=== PATIENT | female | born 1980 | race Caucasian/White ===

== ENCOUNTER 2018-01-18 12:02 | Inpatient (IN) | payer OTHER ==
[2018-01-18 12:08] VITALS: BMI 32.2
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
[2018-01-18] MEDS ORDERED: ACETAMINOPHEN 325 MG TABLET (FP) PO PRN (15:02)
[2018-01-18] MEDS ORDERED: MAGNESIUM CITRATE 300 ML BOTTLE PO PRN (15:02)
[2018-01-18] MEDS ORDERED: P-EPHED 60MG/TRIPROLIDI 2.5MG TABLET PO PRN (15:02)
[2018-01-18] MEDS ORDERED: IBUPROFEN 400 MG TABLET (FP) PO PRN (15:02)
[2018-01-18] MEDS ORDERED: NICOTINE POLACRILEX 4 MG GUM BC PRN (15:02)
[2018-01-18] MEDS ORDERED: MAG HYDROX/AL HYDROX/SIMETH 30 ML UNIT-DOSE CUP PO PRN (15:02)
[2018-01-18] MEDS ORDERED: guaiFENesin/D-METHORPHAN HB 10 ML UNIT-DOSE CUPS PO PRN (15:02)
[2018-01-18] MEDS ORDERED: MAGNESIUM HYDROX 2400MG/30ML ORAL SUSPENSION 30 ML CUP PO PRN (15:02)
[2018-01-18] MEDS ORDERED: MENTHOL/PHENOL 1 EACH UD MM PRN (15:02)
[2018-01-18] MEDS ORDERED: LOPERAMIDE HCL 2 MG CAPSULE PO PRN (15:02)
[2018-01-18] MEDS ORDERED: ALBUTEROL SO4 8 GM HFA INHALER IH PRN (15:05)
[2018-01-18] MEDS ORDERED: METHADONE HCL 10 MG TABLET (FOR DETOX USE ONLY) PO ONE ×2 (16:00→23:00)
[2018-01-18] MEDS: diazePAM 5 MG TABLET PO PRN ×2 (17:39→22:30)
[2018-01-18] MEDS: NICOTINE 21 MG/24 HOURS TOPICAL PATCH TD SCH (19:06)
[2018-01-18] MEDS ORDERED: MELATONIN 5 MG TABLETS PO PRN (22:00)
[2018-01-18] MEDS: levETIRAcetam 500 MG TABLET (FP) PO SCH (22:30)
[2018-01-18] MEDS: THIAMINE HCL 100 MG TABLET (FP) PO SCH (22:30)
[2018-01-19] MEDS: PHENYTOIN NA EXTENDED 100 MG CAPSULE (FP) PO SCH ×3 (05:56→22:10)
[2018-01-19] MEDS: diazePAM 5 MG TABLET PO PRN ×4 (05:57→23:35)
[2018-01-19] MEDS ORDERED: PRENATAL VITAMINS W/ FOLIC ACID TABLET (FP) PO SCH (10:00)
[2018-01-19] MEDS ORDERED: METHADONE HCL 10 MG TABLET (FOR DETOX USE ONLY) PO ONE (10:00)
[2018-01-19 10:15] LABS: HEMATOCRIT 32.9 % (32.4-45.2); HEMOGLOBIN 11.2 GM/dL (10.7-15.3); MCH 28.9 pg (25.7-33.7); MEAN CELL VOLUME 84.8 fl (80-96); MEAN PLT VOLUME 8.5 fl (7.5-11.1); PLATELET COUNT 323 K/MM3 (134-434); RBC 3.88 M/mm3 (3.60-5.2); RDW 17.4 % (11.6-15.6); WHITE BLOOD COUNT 6.3 K/mm3 (4.0-10.0)
[2018-01-19 10:39] LABS: CHLORIDE 107 mmol/L (98-107); POTASSIUM 3.5 mmol/L (3.5-5.1); SODIUM 141 mmol/L (136-145)
[2018-01-19 10:46] LABS: ALBUMIN 3.3 g/dl (3.4-5.0); ALK PHOS 180 U/L (45-117); ANION GAP 7 (8-16); BILIRUBIN,TOTAL 0.2 mg/dL (0.2-1.0); BLOOD UREA NITROGEN 7 mg/dL (7-18); CALCIUM 8.6 mg/dL (8.5-10.1); CO2 27 mmol/L (21-32); CREATININE 0.8 mg/dL (0.55-1.02); GLUCOSE,RANDOM 113 mg/dL (74-106); SGOT/AST 15 U/L (15-37); SGPT/ALT 19 U/L (12-78); TOT PROT 7.1 g/dl (6.4-8.2)
[2018-01-19] MEDS: levETIRAcetam 500 MG TABLET (FP) PO SCH ×2 (10:47→22:09)
[2018-01-19] MEDS: NICOTINE 21 MG/24 HOURS TOPICAL PATCH TD SCH (10:49)
--- NOTE | 2018-01-19 13:40 | PN ---
BHS COWS - Scale Resting Pulse: 1= [place] 81-100 Sweatin= Chills/Flushing Restless Observation: 1= Difficult to Sit Still Pupil Size: 1= Pupils >than Normal Bone or Joint Aches: 2= Severe Diffuse Aches Runny Nose/ Eye Tearin= Nasal Congestion GI Upset > 30mins: 2= Nausea/Diarrhea Tremor Observation of Outstretched Hands: 2= Slight Tremor Visible Yawning Observation: 1= 1-2x During Session Anxiety or Irritability: 1=Feels Anxious/Irritable Goose Flesh Skin: 0=Smooth Skin COWS Score: 13 BHS Progress Note (SOAP) Subjective: Interrupted sleep, irritability and muscle aches Objective: 01/19/18 13:38 Vital Signs - 8 hr 01/19/18 01/19/18 06:00 10:35 Temperature 98.1 F 97.7 F Pulse Rate 84 77 Respiratory 18 18 Rate Blood Pressure 105/68 108/53 Laboratory Last Values WBC 6.3 K/mm3 (4.0-10.0) 01/19/18 05:30 RBC 3.88 M/mm3 (3.60-5.2) 01/19/18 05:30 Hgb 11.2 GM/dL (10.7-15.3) 01/19/18 05:30 Hct 32.9 % (32.4-45.2) 01/19/18 05:30 MCV 84.8 fl (80-96) 01/19/18 05:30 MCH 28.9 pg (25.7-33.7) 01/19/18 05:30 MCHC 34.0 g/dl (32.0-36.0) 01/19/18 05:30 RDW 17.4 % (11.6-15.6) H 01/19/18 05:30 Plt Count 323 K/MM3 (134-434) 01/19/18 05:30 MPV 8.5 fl (7.5-11.1) 01/19/18 05:30 Sodium 141 mmol/L (136-145) 01/19/18 05:30 Potassium 3.5 mmol/L (3.5-5.1) 01/19/18 05:30 Chloride 107 mmol/L (98-107) 01/19/18 05:30 Carbon Dioxide 27 mmol/L (21-32) 01/19/18 05:30 Anion Gap 7 (8-16) L 01/19/18 05:30 BUN 7 mg/dL (7-18) 01/19/18 05:30 Creatinine 0.8 mg/dL (0.55-1.02) 01/19/18 05:30 Creat Clearance w eGFR > 60 (>60) 01/19/18 05:30 Random Glucose 113 mg/dL (74-106) H 01/19/18 05:30 Calcium 8.6 mg/dL (8.5-10.1) 01/19/18 05:30 Total Bilirubin 0.2 mg/dL (0.2-1.0) 01/19/18 05:30 AST 15 U/L (15-37) 01/19/18 05:30 ALT 19 U/L (12-78) 01/19/18 05:30 Alkaline Phosphatase 180 U/L (45-117) H 01/19/18 05:30 Total Protein 7.1 g/dl (6.4-8.2) 01/19/18 05:30 Albumin 3.3 g/dl (3.4-5.0) L 01/19/18 05:30 Phenytoin 3.8 ug/ml (10.0-20.0) L D 01/19/18 05:30 RPR Titer Nonreactive (NONREACTIVE) 01/19/18 05:30 Labs noted Assessment: 01/19/18 13:39 Withdrawal sx Subtherapeutic dilantin level Plan: Continue detox Continue to monitor, patient may not have been compliant at home
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
[2018-01-19] MEDS ORDERED: ZOLPIDEM TARTRATE 5 MG TABLET PO PRN (22:00)
[2018-01-19] MEDS: THIAMINE HCL 100 MG TABLET (FP) PO SCH (22:09)
[2018-01-19 23:01] VITALS: BP 127/67; PULSE 80; TEMP 98.1
--- NOTE | 2018-01-20 06:05 | PN ---
S Progress Note Note: client signed out ama despite all efforts to redirect. client is a/o x3 nad. vss
--- NOTE | 2018-01-20 06:06 | DS ---
[facility] Detox Discharge Summary Admission Date: 01/18/18 Discharge Date: 01/20/18 - History Present History: Cocaine Dependence, Opioid Dependence Pertinent Past History: nicotine dep - Physical Exam Results Vital Signs: Vital Signs Temperature 98.1 F 01/19/18 23:00 Pulse Rate 80 01/19/18 23:00 Respiratory Rate 16 01/20/18 03:30 Blood Pressure 127/67 01/19/18 23:00 O2 Sat by Pulse Oximetry (%) Pertinent Admission Physical Exam Findings: withdrawal sx's Laboratory Tests 01/19/18 01/19/18 01/19/18 05:30 05:30 05:30 WBC 6.3 RBC 3.88 Hgb 11.2 Hct 32.9 MCV 84.8 MCH 28.9 MCHC 34.0 RDW 17.4 H Plt Count 323 MPV 8.5 Sodium 141 Potassium 3.5 Chloride 107 Carbon Dioxide 27 Anion Gap 7 L BUN 7 Creatinine 0.8 Creat Clearance w eGFR > 60 Random Glucose 113 H Calcium 8.6 Total Bilirubin 0.2 AST 15 ALT 19 Alkaline Phosphatase 180 H Total Protein 7.1 Albumin 3.3 L Phenytoin RPR Titer Nonreactive 01/19/18 05:30 WBC RBC Hgb Hct MCV MCH MCHC RDW Plt Count MPV Sodium Potassium Chloride Carbon Dioxide Anion Gap BUN Creatinine Creat Clearance w eGFR Random Glucose Calcium Total Bilirubin AST ALT Alkaline Phosphatase Total Protein Albumin Phenytoin 3.8 L D RPR Titer - Treatment Hospital Course: Discharged Condition Good - Medication Discharge Medications: Ambulatory Orders Albuterol Sulfate Inhaler - [Ventolin HFA Inhaler -] 2 inh PO Q4H PRN #1 inhaler 09/28/17 Phenytoin Na Extended [Dilantin -] 100 mg PO TID #90 capsule 09/28/17 levETIRAcetam [Keppra -] 750 mg PO BID #60 tablet 09/28/17 Amitriptyline HCl [Elavil -] 25 mg PO HS 01/18/18 Sertraline HCl [Zoloft] 100 mg PO DAILY 01/18/18 Ziprasidone [Geodon] 60 mg PO BID 01/18/18 Zolpidem Tartrate [Ambien] 10 mg PO HS 01/18/18 - Diagnosis (1) Cocaine dependence Status: Chronic (2) Nicotine dependence Status: Chronic Qualifiers: Nicotine product type: cigarettes Substance use status: uncomplicated Qualified Code(s): F17.210 - Nicotine dependence, cigarettes, uncomplicated (3) Methadone maintenance therapy patient Status: Chronic (4) PTSD (post-traumatic stress disorder) Status: Chronic (5) Schizoaffective disorder Status: Chronic Qualifiers: Schizoaffective disorder type: unspecified Qualified Code(s): F25.9 - Schizoaffective disorder, unspecified (6) Uncomplicated opioid dependence Status: Chronic (7) History of schizophrenia Status: Suspected (8) Substance induced mood disorder Status: Suspected - AMA Did Patient Leave Against Medical Advice: Yes
[2018-01-20] MEDS ORDERED: METHADONE HCL 5 MG TABLET (FOR DETOX USE ONLY) PO ONE (10:00)
[2018-01-20] MEDS ORDERED: SERTRALINE HCL 50 MG TABLET (FP) PO SCH (10:00)
[2018-01-21] MEDS ORDERED: METHADONE HCL 5 MG TABLET (FOR DETOX USE ONLY) PO ONE (10:00)
--- NOTE | 2018-01-21 11:07 | EKG ---
Test Reason : Blood Pressure : / mmHG Vent. Rate : 088 BPM Atrial Rate : 088 BPM P-R Int : 144 ms QRS Dur : 080 ms QT Int : 400 ms P-R-T Axes : 056 040 051 degrees QTc Int : 484 ms NORMAL SINUS RHYTHM CANNOT RULE OUT ANTERIOR INFARCT , AGE UNDETERMINED ABNORMAL ECG WHEN COMPARED WITH ECG OF 18-JAN-2018 17:00, PREMATURE ATRIAL COMPLEXES ARE NO LONGER PRESENT Confirmed by DEJON KAYE, CEZAR ([id number]) on 01/21/2018 11:06:55 AM Referred By: Confirmed By:CEZAR ASHFORD MD
--- NOTE | 2018-01-21 11:10 | EKG ---
Test Reason : Blood Pressure : / mmHG Vent. Rate : 067 BPM Atrial Rate : 067 BPM P-R Int : 150 ms QRS Dur : 078 ms QT Int : 440 ms P-R-T Axes : 064 057 065 degrees QTc Int : 464 ms SINUS RHYTHM WITH PREMATURE ATRIAL COMPLEXES OTHERWISE NORMAL ECG WHEN COMPARED WITH ECG OF 20-SEP-2017 16:15, PREMATURE ATRIAL COMPLEXES ARE NOW PRESENT Confirmed by DEJON KAYE, CEZAR ([id number]) on 01/21/2018 11:10:02 AM Referred By: Confirmed By:CEZAR ASHFORD MD
[2018-01-22] MEDS ORDERED: METHADONE HCL 10 MG TABLET (FOR DETOX USE ONLY) PO ONE (10:00)
[2018-01-23] MEDS ORDERED: METHADONE HCL 5 MG TABLET (FOR DETOX USE ONLY) PO ONE (06:00)
== END 2018-01-20 05:15 | disposition left against medical advice (07) | DRG 770 ==
LOC: YASAS 12:02 → Y6N 15:49
PROVIDERS: ADMIT Surgery; ATTEND Surgery
PROC: HZ2ZZZZ Detoxification Services for Substance Abuse Treatment (ICD-10-PCS; principal; 2018-01-18)
DX: F11.23 Opioid dependence with withdrawal (principal); F14.20 Cocaine dependence, uncomplicated; F12.20 Cannabis dependence, uncomplicated; F17.210 Nicotine dependence, cigarettes, uncomplicated; F43.10 Post-traumatic stress disorder, unspecified; F25.9 Schizoaffective disorder, unspecified; F19.24 Other psychoactive substance dependence with psychoactive substance-induced mood disorder; G40.909 Epilepsy, unspecified, not intractable, without status epilepticus; G47.00 Insomnia, unspecified; F64.9 Gender identity disorder, unspecified; J45.909 Unspecified asthma, uncomplicated; Z88.0 Allergy status to penicillin; Z91.013 Allergy to seafood; Z91.010 Allergy to peanuts; Z85.841 Personal history of malignant neoplasm of brain
CPT/HCPCS: 36415; 80053; 80185; 85027; 86593; 93005; 93010

== ENCOUNTER 2018-03-19 11:57 | Inpatient (IN) | payer OTHER ==
[2018-03-19 12:40] VITALS: BMI 32.2
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
[2018-03-19] MEDS ORDERED: MAGNESIUM HYDROX 2400MG/30ML ORAL SUSPENSION 30 ML CUP PO PRN (14:41)
[2018-03-19] MEDS ORDERED: METHADONE HCL 10 MG TABLET (FOR DETOX USE ONLY) PO ONE ×3 (14:41→23:00)
[2018-03-19] MEDS ORDERED: MAGNESIUM CITRATE 300 ML BOTTLE PO PRN (14:41)
[2018-03-19] MEDS ORDERED: LOPERAMIDE HCL 2 MG CAPSULE PO PRN (14:41)
[2018-03-19] MEDS ORDERED: MAG HYDROX/AL HYDROX/SIMETH 30 ML UNIT-DOSE CUP PO PRN (14:41)
[2018-03-19] MEDS ORDERED: MENTHOL/PHENOL 1 EACH UD MM PRN (14:41)
[2018-03-19] MEDS ORDERED: IBUPROFEN 400 MG TABLET (FP) PO PRN (14:41)
[2018-03-19] MEDS ORDERED: ACETAMINOPHEN 325 MG TABLET (FP) PO PRN (14:41)
[2018-03-19] MEDS ORDERED: P-EPHED 60MG/TRIPROLIDI 2.5MG TABLET PO PRN (14:41)
[2018-03-19] MEDS: chlordiazePOXIDE HCL 25 MG CAPSULE PO PRN (19:09)
[2018-03-19] MEDS ORDERED: MELATONIN 5 MG TABLETS PO PRN (22:00)
[2018-03-19] MEDS: levETIRAcetam 250 MG TABLET (FP) PO SCH (22:32)
[2018-03-19] MEDS: PHENYTOIN NA EXTENDED 100 MG CAPSULE (FP) PO SCH (22:32)
[2018-03-19] MEDS: THIAMINE HCL 100 MG TABLET (FP) PO SCH (22:32)
[2018-03-19] MEDS: chlordiazePOXIDE HCL 25 MG CAPSULE PO SCH (22:32)
[2018-03-19] MEDS: guaiFENesin/D-METHORPHAN HB 10 ML UNIT-DOSE CUPS PO PRN (22:34)
[2018-03-20 02:24] LABS: URINE APPEARANCE SLCLOUDY; URINE BILIRUBIN NEGATIVE (<2.0 mg/dL); URINE COLOR YELLOW; URINE GLUCOSE (UA) NEGATIVE (NEGATIVE); URINE KETONE NEGATIVE (NEGATIVE); URINE LEUK ESTERASE NEGATIVE (NEGATIVE); URINE NITRITE NEGATIVE (NEGATIVE); URINE PROTEIN NEGATIVE (NEGATIVE); URINE UROBILINOGEN NEGATIVE mg/dL (0.2-1.0)
[2018-03-20 02:55] LABS: CALCIUM OXALATE CRYSTALS FEW /hpf (NONE SEEN); EPI CELLS FEW /HPF (FEW); URINE BACTERIA RARE /hpf (NONE SEEN); URINE MUCUS RARE
[2018-03-20] MEDS: chlordiazePOXIDE HCL 25 MG CAPSULE PO SCH ×4 (06:31→22:40)
[2018-03-20] MEDS: PHENYTOIN NA EXTENDED 100 MG CAPSULE (FP) PO SCH ×3 (06:31→22:40)
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
[2018-03-20] MEDS ORDERED: METHADONE HCL 10 MG TABLET (FOR DETOX USE ONLY) PO SCH (10:00)
[2018-03-20] MEDS: levETIRAcetam 250 MG TABLET (FP) PO SCH ×2 (10:40→22:40)
[2018-03-20] MEDS: NICOTINE 7 MG/24 HOURS TOPICAL PATCH TD SCH (10:41)
[2018-03-20] MEDS: PRENATAL VITAMINS W/ FOLIC ACID TABLET (FP) PO SCH (10:41)
--- NOTE | 2018-03-20 11:44 | EKG ---
Test Reason : Blood Pressure : / mmHG Vent. Rate : 078 BPM Atrial Rate : 078 BPM P-R Int : 136 ms QRS Dur : 078 ms QT Int : 392 ms P-R-T Axes : 045 049 053 degrees QTc Int : 446 ms SINUS RHYTHM WITH PREMATURE ATRIAL COMPLEXES OTHERWISE NORMAL ECG WHEN COMPARED WITH ECG OF 19-JAN-2018 15:44, PREMATURE ATRIAL COMPLEXES ARE NOW PRESENT Confirmed by CAROL KAYE, STEFF ([id number]) on 03/20/2018 11:44:07 AM Referred By: Confirmed By:STEFF MEDINA MD
[2018-03-20] MEDS: ALBUTEROL SO4 8 GM HFA INHALER IH PRN ×2 (13:18→22:41)
[2018-03-20] MEDS: guaiFENesin/D-METHORPHAN HB 10 ML UNIT-DOSE CUPS PO PRN ×2 (13:18→22:41)
--- NOTE | 2018-03-20 14:01 | PN ---
[facility] CIWA - CIWA Score Nausea/Vomitin-Mild Nausea/No Vomiting Muscle Tremors: 4-Moderate,w/Arms Extend Anxiety: 4-Mod. Anxious/Guarded Agitation: 3 Paroxysmal Sweats: 1-Minimal Palms Moist Orientation: 0-Oriented Tacttile Disturbances: 0-None Auditory Disturbances: 0-None Visual Disturbances: 0-None Headache: 0-None Present CIWA-Ar Total Score: 13 BHS COWS - Scale Resting Pulse: 0= [place] 80 or Below Sweatin= Chills/Flushing Restless Observation: 1= Difficult to Sit Still Pupil Size: 0= Normal to Room Light Bone or Joint Aches: 1= Mild Discomfort Runny Nose/ Eye Tearin= None GI Upset > 30mins: 2= Nausea/Diarrhea Tremor Observation of Outstretched Hands: 2= Slight Tremor Visible Yawning Observation: 1= 1-2x During Session Anxiety or Irritability: 1=Feels Anxious/Irritable Goose Flesh Skin: 3=Pil[place] COWS Score: 12 S Progress Note (SOAP) Subjective: body ache tremor sweat joints pain anxiety Objective: 03/20/18 14:00 Vital Signs Temperature 98.1 F 03/20/18 13:12 Pulse Rate 101 H 03/20/18 13:12 Respiratory Rate 16 03/20/18 13:12 Blood Pressure 122/80 03/20/18 13:12 O2 Sat by Pulse Oximetry (%) Laboratory Last Values Urine Color Yellow 03/19/18 23:30 Urine Appearance Slcloudy 03/19/18 23:30 Urine pH 5.0 (5.0-8.0) 03/19/18 23:30 Ur Specific [place] 1.023 (1.001-1.035) 03/19/18 23:30 Urine Protein Negative (NEGATIVE) 03/19/18 23:30 Urine Glucose (UA) Negative (NEGATIVE) 03/19/18 23:30 Urine Ketones Negative (NEGATIVE) 03/19/18 23:30 Urine Blood 2+ (NEGATIVE) H 03/19/18 23:30 Urine Nitrite Negative (NEGATIVE) 03/19/18 23:30 Urine Bilirubin Negative (<2.0 mg/dL) 03/19/18 23:30 Urine Urobilinogen Negative mg/dL (0.2-1.0) 03/19/18 23:30 Ur Leukocyte Esterase Negative (NEGATIVE) 03/19/18 23:30 Urine WBC (Auto) 3 /hpf (3-5) 03/19/18 23:30 Urine RBC (Auto) 65 /hpf (0-3) 03/19/18 23:30 Ur Epithelial Cells Few /HPF (FEW) 03/19/18 23:30 Calcium Oxalate Crystal Few /hpf (NONE SEEN) 03/19/18 23:30 Urine Bacteria Rare /hpf (NONE SEEN) 03/19/18 23:30 Urine Mucus Rare 03/19/18 23:30 lab noted Assessment: 03/20/18 14:01 withdrawal sx Plan: continue detox
[2018-03-20] MEDS ORDERED: QUEtiapine FUMARATE 50 MG TABLET PO SCH (22:00)
[2018-03-20] MEDS ORDERED: AMITRIPTYLINE HCL 25 MG TABLET (FP) PO SCH (22:00)
[2018-03-20] MEDS: THIAMINE HCL 100 MG TABLET (FP) PO SCH (22:40)
[2018-03-21] MEDS: chlordiazePOXIDE HCL 25 MG CAPSULE PO PRN (00:42)
[2018-03-21] MEDS: chlordiazePOXIDE HCL 25 MG CAPSULE PO SCH ×2 (06:51→10:25)
[2018-03-21] MEDS: PHENYTOIN NA EXTENDED 100 MG CAPSULE (FP) PO SCH (07:00)
[2018-03-21 09:18] VITALS: BP 100/54; PULSE 82; TEMP 97.3
[2018-03-21] MEDS ORDERED: ONDANSETRON *ODT* 4 MG TABLET SL PRN (09:32)
[2018-03-21] MEDS ORDERED: METHADONE HCL 5 MG TABLET (FOR DETOX USE ONLY) PO SCH (10:00)
[2018-03-21 10:11] LABS: HEMOGLOBIN 11.6 GM/dL (10.7-15.3); MCH 27.5 pg (25.7-33.7); MCHC 32.3 g/dl (32.0-36.0); MEAN PLT VOLUME 7.6 fl (7.5-11.1); PLATELET COUNT 349 K/MM3 (134-434); RBC 4.23 M/mm3 (3.60-5.2); RDW 16.1 % (11.6-15.6); WHITE BLOOD COUNT 6.1 K/mm3 (4.0-10.0)
[2018-03-21] MEDS: levETIRAcetam 250 MG TABLET (FP) PO SCH (10:24)
[2018-03-21] MEDS: NICOTINE 7 MG/24 HOURS TOPICAL PATCH TD SCH (10:27)
[2018-03-21] MEDS: PRENATAL VITAMINS W/ FOLIC ACID TABLET (FP) PO SCH (10:27)
[2018-03-21] MEDS: guaiFENesin/D-METHORPHAN HB 10 ML UNIT-DOSE CUPS PO PRN (10:28)
[2018-03-21 10:31] LABS: ALK PHOS 194 U/L (45-117); ANION GAP 12 MMOL/L (8-16); BILIRUBIN,TOTAL 0.2 mg/dL (0.2-1); BLOOD UREA NITROGEN 8 mg/dL (7-18); CALCIUM 9.3 mg/dL (8.5-10.1); CHLORIDE 110 mmol/L (98-107); CO2 21 mmol/L (21-32); CREATININE 0.5 mg/dL (0.55-1.3); GLUCOSE,RANDOM 82 mg/dL (74-106); POTASSIUM 4.6 mmol/L (3.5-5.1); SGOT/AST 14 U/L (15-37); SGPT/ALT 25 U/L (13-61); SODIUM 142 mmol/L (136-145); TOT PROT 7.1 g/dl (6.4-8.2)
--- NOTE | 2018-03-21 10:58 | PN ---
S CIWA - CIWA Score Nausea/Vomitin Muscle Tremors: 2 Anxiety: 3 Agitation: 3 Paroxysmal Sweats: 2 Orientation: 0-Oriented Tacttile Disturbances: 0-None Auditory Disturbances: 0-None Visual Disturbances: 0-None Headache: 0-None Present CIWA-Ar Total Score: 12 BHS COWS - Scale Resting Pulse: 0= [place] 80 or Below Sweatin= Chills/Flushing Restless Observation: 1= Difficult to Sit Still Pupil Size: 1= Pupils >than Normal Bone or Joint Aches: 1= Mild Discomfort Runny Nose/ Eye Tearin= Nasal Congestion GI Upset > 30mins: 2= Nausea/Diarrhea Tremor Observation of Outstretched Hands: 1= Tremor [place], Not Seen Yawning Observation: 2= >3x During Session Anxiety or Irritability: 2=Irritable/Anxious Goose Flesh Skin: 0=Smooth Skin COWS Score: 12 [facility] Progress Note (SOAP) Subjective: nausea, vomiting, diarrhea, interrupted sleep, anxious Objective: 03/21/18 10:58 Vital Signs Temperature 97.3 F L 03/21/18 09:18 Pulse Rate 82 03/21/18 09:18 Respiratory Rate 16 03/21/18 09:18 Blood Pressure 100/54 L 03/21/18 09:18 O2 Sat by Pulse Oximetry (%) Laboratory Last Values WBC 6.1 K/mm3 (4.0-10.0) 03/21/18 07:00 RBC 4.23 M/mm3 (3.60-5.2) 03/21/18 07:00 Hgb 11.6 GM/dL (10.7-15.3) 03/21/18 07:00 Hct 36.0 % (32.4-45.2) 03/21/18 07:00 MCV 85.0 fl (80-96) 03/21/18 07:00 MCH 27.5 pg (25.7-33.7) 03/21/18 07:00 MCHC 32.3 g/dl (32.0-36.0) 03/21/18 07:00 RDW 16.1 % (11.6-15.6) H 03/21/18 07:00 Plt Count 349 K/MM3 (134-434) 03/21/18 07:00 MPV 7.6 fl (7.5-11.1) D 03/21/18 07:00 Sodium 142 mmol/L (136-145) 03/21/18 07:00 Potassium 4.6 mmol/L (3.5-5.1) 03/21/18 07:00 Chloride 110 mmol/L (98-107) H 03/21/18 07:00 Carbon Dioxide 21 mmol/L (21-32) 03/21/18 07:00 Anion Gap 12 MMOL/L (8-16) 03/21/18 07:00 BUN 8 mg/dL (7-18) 03/21/18 07:00 Creatinine 0.5 mg/dL (0.55-1.3) L 03/21/18 07:00 Creat Clearance w eGFR > 60 (>60) 03/21/18 07:00 Random Glucose 82 mg/dL (74-106) 03/21/18 07:00 Calcium 9.3 mg/dL (8.5-10.1) 03/21/18 07:00 Total Bilirubin 0.2 mg/dL (0.2-1) 03/21/18 07:00 AST 14 U/L (15-37) L 03/21/18 07:00 ALT 25 U/L (13-61) 03/21/18 07:00 Alkaline Phosphatase 194 U/L (45-117) H 03/21/18 07:00 Total Protein 7.1 g/dl (6.4-8.2) 03/21/18 07:00 Albumin 3.0 g/dl (3.4-5.0) L 03/21/18 07:00 Urine Color Yellow 03/19/18 23:30 Urine Appearance Slcloudy 03/19/18 23:30 Urine pH 5.0 (5.0-8.0) 03/19/18 23:30 Ur Specific [place] 1.023 (1.001-1.035) 03/19/18 23:30 Urine Protein Negative (NEGATIVE) 03/19/18 23:30 Urine Glucose (UA) Negative (NEGATIVE) 03/19/18 23:30 Urine Ketones Negative (NEGATIVE) 03/19/18 23:30 Urine Blood 2+ (NEGATIVE) H 03/19/18 23:30 Urine Nitrite Negative (NEGATIVE) 03/19/18 23:30 Urine Bilirubin Negative (<2.0 mg/dL) 03/19/18 23:30 Urine Urobilinogen Negative mg/dL (0.2-1.0) 03/19/18 23:30 Ur Leukocyte Esterase Negative (NEGATIVE) 03/19/18 23:30 Urine WBC (Auto) 3 /hpf (3-5) 03/19/18 23:30 Urine RBC (Auto) 65 /hpf (0-3) 03/19/18 23:30 Ur Epithelial Cells Few /HPF (FEW) 03/19/18 23:30 Calcium Oxalate Crystal Few /hpf (NONE SEEN) 03/19/18 23:30 Urine Bacteria Rare /hpf (NONE SEEN) 03/19/18 23:30 Urine Mucus Rare 03/19/18 23:30 RPR Titer Nonreactive (NONREACTIVE) 03/21/18 07:00 Assessment: 03/21/18 13:50 aox3 no distress, anxious no adventitious breath sounds abdomen non-tender , non distended full ROM, ambulating in the unit Plan: increase fluids zofran prn continue detox
[2018-03-21] MEDS ORDERED: LIDOCAINE 5% TOPICAL PATCH TP SCH (11:00)
[2018-03-21] MEDS ORDERED: FLU VACCINE QUAD 60 MCG/0.5 ML (MDV 18-19) IM ONE (12:00)
--- NOTE | 2018-03-21 13:02 | DS ---
[facility] Detox Discharge Summary Admission Date: 03/19/18 Discharge Date: 03/21/18 - History Present History: Alcohol Dependence, Opioid Dependence Pertinent Past History: Vital Signs Temperature 97.3 F L 03/21/18 09:18 Pulse Rate 82 03/21/18 09:18 Respiratory Rate 16 03/21/18 09:18 Blood Pressure 100/54 L 03/21/18 09:18 O2 Sat by Pulse Oximetry (%) Laboratory Last Values WBC 6.1 K/mm3 (4.0-10.0) 03/21/18 07:00 RBC 4.23 M/mm3 (3.60-5.2) 03/21/18 07:00 Hgb 11.6 GM/dL (10.7-15.3) 03/21/18 07:00 Hct 36.0 % (32.4-45.2) 03/21/18 07:00 MCV 85.0 fl (80-96) 03/21/18 07:00 MCH 27.5 pg (25.7-33.7) 03/21/18 07:00 MCHC 32.3 g/dl (32.0-36.0) 03/21/18 07:00 RDW 16.1 % (11.6-15.6) H 03/21/18 07:00 Plt Count 349 K/MM3 (134-434) 03/21/18 07:00 MPV 7.6 fl (7.5-11.1) D 03/21/18 07:00 Sodium 142 mmol/L (136-145) 03/21/18 07:00 Potassium 4.6 mmol/L (3.5-5.1) 03/21/18 07:00 Chloride 110 mmol/L (98-107) H 03/21/18 07:00 Carbon Dioxide 21 mmol/L (21-32) 03/21/18 07:00 Anion Gap 12 MMOL/L (8-16) 03/21/18 07:00 BUN 8 mg/dL (7-18) 03/21/18 07:00 Creatinine 0.5 mg/dL (0.55-1.3) L 03/21/18 07:00 Creat Clearance w eGFR > 60 (>60) 03/21/18 07:00 Random Glucose 82 mg/dL (74-106) 03/21/18 07:00 Calcium 9.3 mg/dL (8.5-10.1) 03/21/18 07:00 Total Bilirubin 0.2 mg/dL (0.2-1) 03/21/18 07:00 AST 14 U/L (15-37) L 03/21/18 07:00 ALT 25 U/L (13-61) 03/21/18 07:00 Alkaline Phosphatase 194 U/L (45-117) H 03/21/18 07:00 Total Protein 7.1 g/dl (6.4-8.2) 03/21/18 07:00 Albumin 3.0 g/dl (3.4-5.0) L 03/21/18 07:00 Urine Color Yellow 03/19/18 23:30 Urine Appearance Slcloudy 03/19/18 23:30 Urine pH 5.0 (5.0-8.0) 03/19/18 23:30 Ur Specific [place] 1.023 (1.001-1.035) 03/19/18 23:30 Urine Protein Negative (NEGATIVE) 03/19/18 23:30 Urine Glucose (UA) Negative (NEGATIVE) 03/19/18 23:30 Urine Ketones Negative (NEGATIVE) 03/19/18 23:30 Urine Blood 2+ (NEGATIVE) H 03/19/18 23:30 Urine Nitrite Negative (NEGATIVE) 03/19/18 23:30 Urine Bilirubin Negative (<2.0 mg/dL) 03/19/18 23:30 Urine Urobilinogen Negative mg/dL (0.2-1.0) 03/19/18 23:30 Ur Leukocyte Esterase Negative (NEGATIVE) 03/19/18 23:30 Urine WBC (Auto) 3 /hpf (3-5) 03/19/18 23:30 Urine RBC (Auto) 65 /hpf (0-3) 03/19/18 23:30 Ur Epithelial Cells Few /HPF (FEW) 03/19/18 23:30 Calcium Oxalate Crystal Few /hpf (NONE SEEN) 03/19/18 23:30 Urine Bacteria Rare /hpf (NONE SEEN) 03/19/18 23:30 Urine Mucus Rare 03/19/18 23:30 RPR Titer Nonreactive (NONREACTIVE) 03/21/18 07:00 - Physical Exam Results Vital Signs: Vital Signs Temperature 97.3 F L 03/21/18 09:18 Pulse Rate 82 03/21/18 09:18 Respiratory Rate 16 03/21/18 09:18 Blood Pressure 100/54 L 03/21/18 09:18 O2 Sat by Pulse Oximetry (%) - Medication Discharge Medications: Ambulatory Orders Albuterol Sulfate Inhaler - [Ventolin HFA Inhaler -] 2 inh PO Q4H PRN #1 inhaler 09/28/17 Phenytoin Na Extended [Dilantin -] 100 mg PO TID #90 capsule 09/28/17 levETIRAcetam [Keppra -] 750 mg PO BID #60 tablet 09/28/17 Amitriptyline HCl [Elavil -] 25 mg PO HS 01/18/18 Sertraline HCl [Zoloft] 100 mg PO DAILY 01/18/18 Ziprasidone [Geodon] 60 mg PO BID 01/18/18 Zolpidem Tartrate [Ambien] 10 mg PO HS 01/18/18 - Diagnosis (1) Cannabis dependence, uncomplicated Current Visit: Yes Status: Chronic (2) Opioid dependence with withdrawal Current Visit: Yes Status: Acute (3) Alcohol dependence with withdrawal Current Visit: Yes Status: Acute Qualifiers: Complication of substance-induced condition: uncomplicated Qualified Code(s ): F10.230 - Alcohol dependence with withdrawal, uncomplicated (4) Nausea & vomiting Current Visit: Yes Status: Acute (5) Anemia Current Visit: Yes Status: Chronic (6) Asthma Current Visit: Yes Status: Chronic (7) Nicotine dependence Current Visit: Yes Status: Chronic Qualifiers: Nicotine product type: cigarettes Substance use status: uncomplicated Qualified Code(s): F17.210 - Nicotine dependence, cigarettes, uncomplicated - AMA Did Patient Leave Against Medical Advice: Yes
[2018-03-21] MEDS ORDERED: LIDOCAINE PATCH REMOVAL MC SCH (22:00)
[2018-03-21] MEDS ORDERED: chlordiazePOXIDE 5 MG CAPSULE PO SCH (23:00)
[2018-03-22] MEDS ORDERED: METHADONE HCL 10 MG TABLET (FOR DETOX USE ONLY) PO SCH (10:00)
[2018-03-22] MEDS ORDERED: chlordiazePOXIDE HCL 10 MG CAPSULE PO SCH (23:00)
[2018-03-23] MEDS ORDERED: METHADONE HCL 5 MG TABLET (FOR DETOX USE ONLY) PO SCH (06:00)
== END 2018-03-21 13:30 | disposition home or self-care (01) | DRG 773 ==
LOC: YASAS 11:57 → Y6N 16:18
PROC: HZ2ZZZZ Detoxification Services for Substance Abuse Treatment (ICD-10-PCS; principal; 2018-03-19)
DX: F11.23 Opioid dependence with withdrawal (principal); F10.230 Alcohol dependence with withdrawal, uncomplicated; F12.20 Cannabis dependence, uncomplicated; F17.213 Nicotine dependence, cigarettes, with withdrawal; F19.24 Other psychoactive substance dependence with psychoactive substance-induced mood disorder; F43.10 Post-traumatic stress disorder, unspecified; J45.909 Unspecified asthma, uncomplicated; D64.9 Anemia, unspecified; R11.2 Nausea with vomiting, unspecified
CPT/HCPCS: 36415; 80053; 81003; 81015; 85027; 86593; 93005; 93010; Q0162

== ENCOUNTER 2018-06-28 12:10 | Inpatient (IN) | payer OTHER ==
[2018-06-28 13:25] VITALS: BMI 31.1
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
[2018-06-28] MEDS ORDERED: P-EPHED 60MG/TRIPROLIDI 2.5MG TABLET PO PRN (15:07)
[2018-06-28] MEDS ORDERED: IBUPROFEN 400 MG TABLET (FP) PO PRN (15:07)
[2018-06-28] MEDS ORDERED: ACETAMINOPHEN 325 MG TABLET (FP) PO PRN (15:07)
[2018-06-28] MEDS ORDERED: MAGNESIUM HYDROX 2400MG/30ML ORAL SUSPENSION 30 ML CUP PO PRN (15:07)
[2018-06-28] MEDS ORDERED: LOPERAMIDE HCL 2 MG CAPSULE PO PRN (15:07)
[2018-06-28] MEDS ORDERED: MAG HYDROX/AL HYDROX/SIMETH 30 ML UNIT-DOSE CUP PO PRN (15:07)
[2018-06-28] MEDS ORDERED: guaiFENesin/D-METHORPHAN HB 10 ML UNIT-DOSE CUPS PO PRN (15:07)
[2018-06-28] MEDS ORDERED: NICOTINE POLACRILEX 2 MG GUM BC PRN (15:07)
[2018-06-28] MEDS ORDERED: MENTHOL/PHENOL 1 EACH UD MM PRN (15:07)
[2018-06-28] MEDS ORDERED: MAGNESIUM CITRATE 300 ML BOTTLE PO PRN (15:07)
[2018-06-28] MEDS ORDERED: ALBUTEROL SO4 8 GM HFA INHALER IH PRN (15:11)
[2018-06-28] MEDS ORDERED: chlordiazePOXIDE HCL 25 MG CAPSULE PO PRN (15:57)
[2018-06-28] MEDS ORDERED: METHADONE HCL 10 MG TABLET (FOR DETOX USE ONLY) PO ONE ×2 (16:45→23:00)
[2018-06-28] MEDS: chlordiazePOXIDE HCL 25 MG CAPSULE PO SCH ×2 (18:20→22:59)
[2018-06-28] MEDS ORDERED: MELATONIN 5 MG TABLETS PO PRN (22:00)
[2018-06-28] MEDS: levETIRAcetam 250 MG TABLET (FP) PO SCH (22:59)
[2018-06-28] MEDS: THIAMINE HCL 100 MG TABLET (FP) PO SCH (22:59)
[2018-06-29] MEDS: chlordiazePOXIDE HCL 25 MG CAPSULE PO SCH ×4 (05:44→22:37)
--- NOTE | 2018-06-29 09:45 | PN ---
S CIWA - CIWA Score Nausea/Vomitin Muscle Tremors: 2 Anxiety: 2 Agitation: 2 Paroxysmal Sweats: 1-Minimal Palms Moist Orientation: 0-Oriented Tacttile Disturbances: 1-Very Mild Itch/Numbness Auditory Disturbances: 1-Very Mild Visual Disturbances: 0-None Headache: 2-Mild CIWA-Ar Total Score: 13 BHS COWS - Scale Resting Pulse: 0= [place] 80 or Below Sweatin= Chills/Flushing Restless Observation: 3= Extraneous Movement Pupil Size: 1= Pupils >than Normal Bone or Joint Aches: 2= Severe Diffuse Aches Runny Nose/ Eye Tearin= Runny Nose/Eyes GI Upset > 30mins: 2= Nausea/Diarrhea Tremor Observation of Outstretched Hands: 2= Slight Tremor Visible Yawning Observation: 1= 1-2x During Session Anxiety or Irritability: 2=Irritable/Anxious Goose Flesh Skin: 0=Smooth Skin COWS Score: 16 S Progress Note (SOAP) Subjective: alert,irritable,anxious,interrupted sleep,tremor,pain in the body and back Objective: 06/29/18 09:44 Vital Signs Temperature 98.3 F 06/29/18 06:46 Pulse Rate 79 06/29/18 06:46 Respiratory Rate 18 06/29/18 06:46 Blood Pressure 109/67 06/29/18 06:46 O2 Sat by Pulse Oximetry (%) labs pending Assessment: 06/29/18 09:44 withdrawal symptom Plan: continue detox
[2018-06-29 09:56] LABS: HEMATOCRIT 37.3 % (32.4-45.2); HEMOGLOBIN 11.7 GM/dL (10.7-15.3); MCHC 31.3 g/dl (32.0-36.0); MEAN CELL VOLUME 86.3 fl (80-96); PLATELET COUNT 366 K/MM3 (134-434); RBC 4.32 M/mm3 (3.60-5.2); RDW 17.8 % (11.6-15.6); WHITE BLOOD COUNT 8.9 K/mm3 (4.0-10.0)
[2018-06-29] MEDS ORDERED: METHADONE HCL 10 MG TABLET (FOR DETOX USE ONLY) PO SCH (10:00)
[2018-06-29] MEDS: PRENATAL VITAMINS W/ FOLIC ACID TABLET (FP) PO SCH (10:27)
[2018-06-29] MEDS: levETIRAcetam 250 MG TABLET (FP) PO SCH ×2 (10:27→22:37)
[2018-06-29] MEDS: NICOTINE 21 MG/24 HOURS TOPICAL PATCH TD SCH (10:28)
[2018-06-29 10:43] LABS: ALBUMIN 3.3 g/dl (3.4-5.0); ALK PHOS 183 U/L (45-117); ANION GAP 9 MMOL/L (8-16); BILIRUBIN,TOTAL 0.4 mg/dL (0.2-1); BLOOD UREA NITROGEN 11 mg/dL (7-18); CALCIUM 8.6 mg/dL (8.5-10.1); CHLORIDE 105 mmol/L (98-107); CO2 24 mmol/L (21-32); CREATININE 0.8 mg/dL (0.55-1.3); GLUCOSE,RANDOM 87 mg/dL (74-106); POTASSIUM 3.9 mmol/L (3.5-5.1); SGOT/AST 15 U/L (15-37); SGPT/ALT 20 U/L (13-61); SODIUM 137 mmol/L (136-145)
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
[2018-06-29] MEDS: hydrOXYzine PAMOATE 50 MG CAPSULE (FP) PO PRN (14:09)
[2018-06-29] MEDS: THIAMINE HCL 100 MG TABLET (FP) PO SCH (22:37)
[2018-06-29] MEDS: MIRTAZAPINE 15 MG TABLET (FP) PO SCH (22:37)
[2018-06-30] MEDS: chlordiazePOXIDE HCL 25 MG CAPSULE PO SCH ×2 (05:58→10:21)
[2018-06-30] MEDS: METHADONE HCL 5 MG TABLET (FOR DETOX USE ONLY) PO SCH (10:21)
[2018-06-30] MEDS: NICOTINE 21 MG/24 HOURS TOPICAL PATCH TD SCH (10:21)
[2018-06-30] MEDS: levETIRAcetam 250 MG TABLET (FP) PO SCH ×2 (10:21→22:43)
[2018-06-30] MEDS: PRENATAL VITAMINS W/ FOLIC ACID TABLET (FP) PO SCH (10:21)
--- NOTE | 2018-06-30 10:39 | PN ---
S CIWA - CIWA Score Nausea/Vomitin-Mild Nausea/No Vomiting Muscle Tremors: 3 Anxiety: 2 Agitation: 3 Paroxysmal Sweats: 1-Minimal Palms Moist Orientation: 0-Oriented Tacttile Disturbances: 0-None Auditory Disturbances: 0-None Visual Disturbances: 0-None Headache: 2-Mild CIWA-Ar Total Score: 12 BHS COWS - Scale Resting Pulse: 0= [place] 80 or Below Sweatin= Chills/Flushing Restless Observation: 0= Sits Still Pupil Size: 0= Normal to Room Light Bone or Joint Aches: 2= Severe Diffuse Aches Runny Nose/ Eye Tearin= Nasal Congestion GI Upset > 30mins: 2= Nausea/Diarrhea Tremor Observation of Outstretched Hands: 2= Slight Tremor Visible Yawning Observation: 2= >3x During Session Anxiety or Irritability: 2=Irritable/Anxious Goose Flesh Skin: 0=Smooth Skin COWS Score: 12 S Progress Note (SOAP) Subjective: body aches joints pain tremor sweat restlessness muscle cramping Objective: 06/30/18 12:07 Vital Signs Temperature 98.1 F 06/30/18 09:44 Pulse Rate 85 06/30/18 09:44 Respiratory Rate 16 06/30/18 09:44 Blood Pressure 121/54 L 06/30/18 09:44 O2 Sat by Pulse Oximetry (%) Laboratory Last Values WBC 8.9 K/mm3 (4.0-10.0) 06/29/18 05:50 RBC 4.32 M/mm3 (3.60-5.2) 06/29/18 05:50 Hgb 11.7 GM/dL (10.7-15.3) 06/29/18 05:50 Hct 37.3 % (32.4-45.2) 06/29/18 05:50 MCV 86.3 fl (80-96) 06/29/18 05:50 MCH 27.0 pg (25.7-33.7) 06/29/18 05:50 MCHC 31.3 g/dl (32.0-36.0) L 06/29/18 05:50 RDW 17.8 % (11.6-15.6) H 06/29/18 05:50 Plt Count 366 K/MM3 (134-434) 06/29/18 05:50 MPV 9.0 fl (7.5-11.1) D 06/29/18 05:50 Sodium 137 mmol/L (136-145) 06/29/18 05:50 Potassium 3.9 mmol/L (3.5-5.1) 06/29/18 05:50 Chloride 105 mmol/L (98-107) 06/29/18 05:50 Carbon Dioxide 24 mmol/L (21-32) 06/29/18 05:50 Anion Gap 9 MMOL/L (8-16) 06/29/18 05:50 BUN 11 mg/dL (7-18) 06/29/18 05:50 Creatinine 0.8 mg/dL (0.55-1.3) 06/29/18 05:50 Creat Clearance w eGFR > 60 (>60) 06/29/18 05:50 Random Glucose 87 mg/dL (74-106) 06/29/18 05:50 Calcium 8.6 mg/dL (8.5-10.1) 06/29/18 05:50 Total Bilirubin 0.4 mg/dL (0.2-1) 06/29/18 05:50 AST 15 U/L (15-37) 06/29/18 05:50 ALT 20 U/L (13-61) 06/29/18 05:50 Alkaline Phosphatase 183 U/L (45-117) H 06/29/18 05:50 Total Protein 7.0 g/dl (6.4-8.2) 06/29/18 05:50 Albumin 3.3 g/dl (3.4-5.0) L 06/29/18 05:50 Phenytoin < 0.4 ug/ml (10.0-20.0) L 06/29/18 05:50 RPR Titer Nonreactive (NONREACTIVE) 06/29/18 05:50 lab noted none compliance with dilantine 300 mg dilantin loading dose 06/30/18 12:11 Assessment: 06/30/18 12:11 withdrawal sx seizure Plan: continue detox none adherence with anti seizure medication
[2018-06-30] MEDS ORDERED: PHENYTOIN NA EXTENDED 100 MG CAPSULE (FP) PO ONE (12:45)
[2018-06-30] MEDS: LIDOCAINE 5% TOPICAL PATCH TP SCH (13:29)
[2018-06-30] MEDS: PHENYTOIN NA EXTENDED 100 MG CAPSULE (FP) PO SCH ×2 (13:43→22:43)
[2018-06-30] MEDS: chlordiazePOXIDE 5 MG CAPSULE PO SCH ×2 (17:41→22:42)
[2018-06-30] MEDS: LIDOCAINE PATCH REMOVAL MC SCH (21:51)
[2018-06-30] MEDS: THIAMINE HCL 100 MG TABLET (FP) PO SCH (22:42)
[2018-06-30] MEDS: MIRTAZAPINE 15 MG TABLET (FP) PO SCH (22:43)
[2018-07-01] MEDS: PHENYTOIN NA EXTENDED 100 MG CAPSULE (FP) PO SCH ×3 (05:42→22:31)
[2018-07-01] MEDS: chlordiazePOXIDE 5 MG CAPSULE PO SCH ×2 (05:42→10:28)
[2018-07-01] MEDS: PRENATAL VITAMINS W/ FOLIC ACID TABLET (FP) PO SCH (10:28)
[2018-07-01] MEDS: NICOTINE 21 MG/24 HOURS TOPICAL PATCH TD SCH (10:28)
[2018-07-01] MEDS: METHADONE HCL 5 MG TABLET (FOR DETOX USE ONLY) PO SCH (10:28)
[2018-07-01] MEDS: levETIRAcetam 250 MG TABLET (FP) PO SCH ×2 (10:57→22:30)
[2018-07-01] MEDS: LIDOCAINE 5% TOPICAL PATCH TP SCH (10:58)
--- NOTE | 2018-07-01 11:11 | PN ---
[facility] Progress Note Note: PATIENT CONTINUES WITH DETOX REGIMEN. C/O BACK PAIN, INTERRUPTED SLEEP AND HEADACHE. Vital Signs Temperature 97.7 F 07/01/18 10:35 Pulse Rate 94 H 07/01/18 10:35 Respiratory Rate 18 07/01/18 10:35 Blood Pressure 129/65 07/01/18 10:35 O2 Sat by Pulse Oximetry (%) Laboratory Tests 06/29/18 06/29/18 06/29/18 05:50 05:50 05:50 WBC 8.9 RBC 4.32 Hgb 11.7 Hct 37.3 MCV 86.3 MCH 27.0 MCHC 31.3 L RDW 17.8 H Plt Count 366 MPV 9.0 D Sodium 137 Potassium 3.9 Chloride 105 Carbon Dioxide 24 Anion Gap 9 BUN 11 Creatinine 0.8 Creat Clearance w eGFR > 60 Random Glucose 87 Calcium 8.6 Total Bilirubin 0.4 AST 15 ALT 20 Alkaline Phosphatase 183 H Total Protein 7.0 Albumin 3.3 L Phenytoin RPR Titer Nonreactive 06/29/18 05:50 WBC RBC Hgb Hct MCV MCH MCHC RDW Plt Count MPV Sodium Potassium Chloride Carbon Dioxide Anion Gap BUN Creatinine Creat Clearance w eGFR Random Glucose Calcium Total Bilirubin AST ALT Alkaline Phosphatase Total Protein Albumin Phenytoin < 0.4 L RPR Titer PE: ALERT AND ORIENTED X 3 SKIN WARM AND DRY NEURO +PERRLA, EOMS INTACT BL EXT FULL ROM, NO TREMORS AMB AD [place] A/P WITHDRAWAL SX CONTINUE CURRENT DETOX PROTOCOL APAP/IBU FOR HEADACHE PRN REPEAT DILANTIN LEVEL PENDING LIDOCAINE PATCH FOR BACK PAIN MONITOR
[2018-07-01] MEDS: chlordiazePOXIDE HCL 10 MG CAPSULE PO SCH ×2 (18:05→22:30)
[2018-07-01] MEDS: hydrOXYzine PAMOATE 50 MG CAPSULE (FP) PO PRN (22:30)
[2018-07-01] MEDS: MIRTAZAPINE 15 MG TABLET (FP) PO SCH (22:30)
[2018-07-01] MEDS: LIDOCAINE PATCH REMOVAL MC SCH (22:31)
[2018-07-01] MEDS: THIAMINE HCL 100 MG TABLET (FP) PO SCH (22:31)
[2018-07-02] MEDS: hydrOXYzine PAMOATE 50 MG CAPSULE (FP) PO PRN (02:06)
[2018-07-02] MEDS: PHENYTOIN NA EXTENDED 100 MG CAPSULE (FP) PO SCH (05:35)
[2018-07-02] MEDS: chlordiazePOXIDE HCL 10 MG CAPSULE PO SCH (05:35)
[2018-07-02 06:43] VITALS: BP 107/56; PULSE 72; TEMP 97.2
--- NOTE | 2018-07-02 08:36 | DS ---
[facility] Detox Discharge Summary Admission Date: 06/28/18 Discharge Date: 07/02/18 - History Present History: Alcohol Dependence, Opioid Dependence Additional Comments: 38 years old admitted on 06/28/18 for alcohol and opiate withdrawal stabilization patient requests to be discharged today due to conflict with another female peer on the same unit patient walk out the detox unit security escorted the patient to her property storage area safely patient received Dilantin and librium 10 mg today around 5 AM patient was angry through de escalation that the patient is calm alert denies suicidal no homocidal ideation no self destructive behavior aftercare [facility] rehab patient preferred residential and agreed to continue taking seizure medication e prescription sent to pharmacy - Physical Exam Results Vital Signs: Vital Signs Temperature 97.2 F L 07/02/18 06:43 Pulse Rate 72 07/02/18 06:43 Respiratory Rate 18 07/02/18 06:43 Blood Pressure 107/56 L 07/02/18 06:43 O2 Sat by Pulse Oximetry (%) Pertinent Admission Physical Exam Findings: alcohol and opiate withdrawal sx Laboratory Last Values WBC 8.9 K/mm3 (4.0-10.0) 06/29/18 05:50 RBC 4.32 M/mm3 (3.60-5.2) 06/29/18 05:50 Hgb 11.7 GM/dL (10.7-15.3) 06/29/18 05:50 Hct 37.3 % (32.4-45.2) 06/29/18 05:50 MCV 86.3 fl (80-96) 06/29/18 05:50 MCH 27.0 pg (25.7-33.7) 06/29/18 05:50 MCHC 31.3 g/dl (32.0-36.0) L 06/29/18 05:50 RDW 17.8 % (11.6-15.6) H 06/29/18 05:50 Plt Count 366 K/MM3 (134-434) 06/29/18 05:50 MPV 9.0 fl (7.5-11.1) D 06/29/18 05:50 Sodium 137 mmol/L (136-145) 06/29/18 05:50 Potassium 3.9 mmol/L (3.5-5.1) 06/29/18 05:50 Chloride 105 mmol/L (98-107) 06/29/18 05:50 Carbon Dioxide 24 mmol/L (21-32) 06/29/18 05:50 Anion Gap 9 MMOL/L (8-16) 06/29/18 05:50 BUN 11 mg/dL (7-18) 06/29/18 05:50 Creatinine 0.8 mg/dL (0.55-1.3) 06/29/18 05:50 Creat Clearance w eGFR > 60 (>60) 06/29/18 05:50 Random Glucose 87 mg/dL (74-106) 06/29/18 05:50 Calcium 8.6 mg/dL (8.5-10.1) 06/29/18 05:50 Total Bilirubin 0.4 mg/dL (0.2-1) 06/29/18 05:50 AST 15 U/L (15-37) 06/29/18 05:50 ALT 20 U/L (13-61) 06/29/18 05:50 Alkaline Phosphatase 183 U/L (45-117) H 06/29/18 05:50 Total Protein 7.0 g/dl (6.4-8.2) 06/29/18 05:50 Albumin 3.3 g/dl (3.4-5.0) L 06/29/18 05:50 Phenytoin 5.3 ug/ml (10.0-20.0) L 07/01/18 10:30 RPR Titer Nonreactive (NONREACTIVE) 06/29/18 05:50 lab noted - Treatment Hospital Course: Detox Protocol Followed, Detoxed Safely, Responded well, Discharged Condition Good, Rehab Referral Accepted Patient has Accepted a Rehab Referral to: [facility] - Medication Discharge Medications: Ambulatory Orders Amitriptyline HCl [Elavil -] 25 mg PO HS 01/18/18 Sertraline HCl [Zoloft] 100 mg PO DAILY 01/18/18 Ziprasidone [Geodon -] 60 mg PO BID 01/18/18 Zolpidem Tartrate [Ambien] 10 mg PO HS 01/18/18 Albuterol Sulfate Inhaler - [Ventolin HFA Inhaler -] 2 inh IH Q4H PRN #1 inhaler 07/02/18 Phenytoin Na Extended [Dilantin -] 100 mg PO TID #90 capsule 07/02/18 levETIRAcetam [Keppra -] 750 mg PO BID #60 tablet 07/02/18 - Diagnosis (1) Alcohol dependence with withdrawal Current Visit: Yes Status: Acute Qualifiers: Complication of substance-induced condition: uncomplicated Qualified Code(s ): F10.230 - Alcohol dependence with withdrawal, uncomplicated (2) Opioid dependence with withdrawal Current Visit: Yes Status: Acute (3) Nicotine dependence Current Visit: Yes Status: Acute Qualifiers: Nicotine product type: cigarettes Substance use status: in withdrawal Qualified Code(s): F17.213 - Nicotine dependence, cigarettes, with withdrawal (4) Substance induced mood disorder Current Visit: Yes Status: Suspected (5) Asthma Current Visit: Yes Status: Chronic (6) Seizure disorder Current Visit: Yes Status: Chronic - AMA Did Patient Leave Against Medical Advice: No
[2018-07-02] MEDS ORDERED: METHADONE HCL 10 MG TABLET (FOR DETOX USE ONLY) PO SCH (10:00)
[2018-07-03] MEDS ORDERED: METHADONE HCL 5 MG TABLET (FOR DETOX USE ONLY) PO SCH (06:00)
== END 2018-07-02 08:06 | disposition home or self-care (01) | DRG 773 ==
LOC: YASAS 12:10 → Y6N 15:28
PROC: HZ2ZZZZ Detoxification Services for Substance Abuse Treatment (ICD-10-PCS; principal; 2018-06-28)
DX: F11.23 Opioid dependence with withdrawal (principal); F10.230 Alcohol dependence with withdrawal, uncomplicated; F14.20 Cocaine dependence, uncomplicated; F12.20 Cannabis dependence, uncomplicated; F17.213 Nicotine dependence, cigarettes, with withdrawal; F19.24 Other psychoactive substance dependence with psychoactive substance-induced mood disorder; F41.8 Other specified anxiety disorders; F32.9 Major depressive disorder, single episode, unspecified; F43.10 Post-traumatic stress disorder, unspecified; G47.00 Insomnia, unspecified; J45.909 Unspecified asthma, uncomplicated; M54.5 Low back pain; G89.29 Other chronic pain; Z91.013 Allergy to seafood; Z88.0 Allergy status to penicillin; Z91.018 Allergy to other foods; Z85.841 Personal history of malignant neoplasm of brain
CPT/HCPCS: 36415; 80053; 80185; 85027; 86593

== ENCOUNTER 2018-08-14 09:00 | Inpatient (IN) | payer OTHER ==
[2018-08-14 09:16] VITALS: BMI 28.9
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
[2018-08-14] MEDS ORDERED: MAGNESIUM CITRATE 300 ML BOTTLE PO PRN (10:07)
[2018-08-14] MEDS ORDERED: hydrOXYzine PAMOATE 25 MG CAPSULE (FP) PO PRN (10:07)
[2018-08-14] MEDS ORDERED: chlordiazePOXIDE HCL 25 MG CAPSULE PO PRN (10:07)
[2018-08-14] MEDS ORDERED: MENTHOL/PHENOL 1 EACH UD MM PRN (10:07)
[2018-08-14] MEDS ORDERED: MAG HYDROX/AL HYDROX/SIMETH 30 ML UNIT-DOSE CUP PO PRN (10:07)
[2018-08-14] MEDS ORDERED: MAGNESIUM HYDROX 2400MG/30ML ORAL SUSPENSION 30 ML CUP PO PRN (10:07)
[2018-08-14] MEDS ORDERED: P-EPHED 60MG/TRIPROLIDI 2.5MG TABLET PO PRN (10:07)
[2018-08-14] MEDS ORDERED: guaiFENesin/D-METHORPHAN HB 10 ML UNIT-DOSE CUPS PO PRN (10:07)
[2018-08-14] MEDS ORDERED: LOPERAMIDE HCL 2 MG CAPSULE PO PRN (10:07)
[2018-08-14] MEDS ORDERED: NICOTINE POLACRILEX 2 MG GUM BC PRN (10:07)
[2018-08-14] MEDS ORDERED: ACETAMINOPHEN 325 MG TABLET (FP) PO PRN (10:07)
[2018-08-14] MEDS ORDERED: IBUPROFEN 400 MG TABLET (FP) PO PRN (10:07)
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
[2018-08-14] MEDS ORDERED: ALBUTEROL SO4 8 GM HFA INHALER IH PRN (10:15)
[2018-08-14] MEDS ORDERED: METHADONE HCL 10 MG TABLET (FOR DETOX USE ONLY) PO ONE ×2 (11:30→23:00)
[2018-08-14] MEDS: NICOTINE 21 MG/24 HOURS TOPICAL PATCH TD SCH (13:32)
[2018-08-14] MEDS: PHENYTOIN NA EXTENDED 100 MG CAPSULE (FP) PO SCH ×2 (13:32→22:33)
[2018-08-14] MEDS: chlordiazePOXIDE HCL 25 MG CAPSULE PO SCH ×2 (17:25→22:32)
[2018-08-14] MEDS ORDERED: MELATONIN 5 MG TABLETS PO PRN (22:00)
[2018-08-14] MEDS: THIAMINE HCL 100 MG TABLET (FP) PO SCH (22:31)
[2018-08-14] MEDS: levETIRAcetam 250 MG TABLET (FP) PO SCH (22:32)
[2018-08-15] MEDS: chlordiazePOXIDE HCL 25 MG CAPSULE PO SCH ×4 (06:00→22:45)
[2018-08-15] MEDS: PHENYTOIN NA EXTENDED 100 MG CAPSULE (FP) PO SCH ×3 (06:50→22:44)
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
[2018-08-15] MEDS ORDERED: METHADONE HCL 10 MG TABLET (FOR DETOX USE ONLY) PO SCH (10:00)
[2018-08-15 10:42] LABS: HEMATOCRIT 39.8 % (32.4-45.2); MCH 28.1 pg (25.7-33.7); MCHC 32.6 g/dl (32.0-36.0); MEAN PLT VOLUME 8.2 fl (7.5-11.1); PLATELET COUNT 326 K/MM3 (134-434); RBC 4.62 M/mm3 (3.60-5.2); RDW 17.7 % (11.6-15.6); WHITE BLOOD COUNT 5.7 K/mm3 (4.0-10.0)
[2018-08-15] MEDS: NICOTINE 21 MG/24 HOURS TOPICAL PATCH TD SCH (11:01)
[2018-08-15] MEDS: levETIRAcetam 250 MG TABLET (FP) PO SCH ×2 (11:02→22:44)
[2018-08-15] MEDS: PRENATAL VITAMINS W/ FOLIC ACID TABLET (FP) PO SCH (11:02)
[2018-08-15] MEDS ORDERED: TRIMETHOBENZAMIDE HCL 200MG/2ML INJ IM PRN (11:44)
[2018-08-15 12:12] LABS: ALBUMIN 3.5 g/dl (3.4-5.0); ALK PHOS 188 U/L (45-117); ANION GAP 10 MMOL/L (8-16); BILIRUBIN,TOTAL 0.3 mg/dL (0.2-1); BLOOD UREA NITROGEN 10 mg/dL (7-18); CALCIUM 9.1 mg/dL (8.5-10.1); CHLORIDE 108 mmol/L (98-107); CO2 20 mmol/L (21-32); CREATININE 0.9 mg/dL (0.55-1.3); GLUCOSE,RANDOM 107 mg/dL (74-106); POTASSIUM 4.1 mmol/L (3.5-5.1); SGOT/AST 16 U/L (15-37); SGPT/ALT 25 U/L (13-61); SODIUM 138 mmol/L (136-145); TOT PROT 7.3 g/dl (6.4-8.2)
[2018-08-15] MEDS: CYCLOBENZAPRINE HCL 10 MG TABLET (FP) PO PRN ×2 (14:11→22:46)
[2018-08-15] MEDS ORDERED: hydrOXYzine PAMOATE 50 MG CAPSULE (FP) PO PRN (15:05)
--- NOTE | 2018-08-15 15:19 | PN ---
S CIWA - CIWA Score Nausea/Vomitin-No Nausea/No Vomiting Muscle Tremors: 3 Anxiety: 1-Mildly Anxious Agitation: 0-Normal Activity Paroxysmal Sweats: 3 Orientation: 0-Oriented Tacttile Disturbances: 1-Very Mild Itch/Numbness Auditory Disturbances: 0-None Visual Disturbances: 3-Moderate Sensitivity Headache: 3-Moderate CIWA-Ar Total Score: 14 S COWS - Scale Resting Pulse: 0= [place] 80 or Below Sweatin= Chills/Flushing Restless Observation: 0= Sits Still Pupil Size: 0= Normal to Room Light Bone or Joint Aches: 2= Severe Diffuse Aches Runny Nose/ Eye Tearin= Runny Nose/Eyes GI Upset > 30mins: 0= None Tremor Observation of Outstretched Hands: 2= Slight Tremor Visible Yawning Observation: 1= 1-2x During Session Anxiety or Irritability: 2=Irritable/Anxious Goose Flesh Skin: 0=Smooth Skin COWS Score: 10 S Progress Note (SOAP) Subjective: Stomach Cramping, H/A, Body Aches, Diarrhea, Hot / Cold Sensations, Interrupted Sleep, Tremors, Nausea. Objective: PATIENT A & O X 3. IN NO ACUTE DISTRESS. 08/15/18 15:16 Vital Signs Temperature 97.9 F 08/15/18 13:43 Pulse Rate 77 08/15/18 13:43 Respiratory Rate 18 08/15/18 13:43 Blood Pressure 116/77 08/15/18 13:43 O2 Sat by Pulse Oximetry (%) Laboratory Tests 08/15/18 08/15/18 08/15/18 06:00 08:38 08:38 WBC 5.7 RBC 4.62 Hgb 13.0 Hct 39.8 MCV 86.0 MCH 28.1 MCHC 32.6 RDW 17.7 H Plt Count 326 MPV 8.2 Sodium 138 Potassium 4.1 Chloride 108 H Carbon Dioxide 20 L Anion Gap 10 BUN 10 Creatinine 0.9 Creat Clearance w eGFR > 60 Random Glucose 107 H Calcium 9.1 Total Bilirubin 0.3 AST 16 ALT 25 Alkaline Phosphatase 188 H Total Protein 7.3 Albumin 3.5 RPR Titer Nonreactive LABS NOTED. Assessment: 08/15/18 15:17 WITHDRAWAL SYMPTOMS. INCREASE DAILY PO FLUID INTAKE. Plan: CONTINUE DETOX. INCREASE DAILY PO FLUID INTAKE. PRN IMMDOIUM PO FOR DIARRHEA. PRN FLEXERIL PO FOR BODY ACHES / MUSCLE SPASMS. PRN TIGAN IM FOR NAUSEA.
[2018-08-15] MEDS ORDERED: QUEtiapine FUMARATE 50 MG TABLET PO SCH (22:00)
[2018-08-15] MEDS: THIAMINE HCL 100 MG TABLET (FP) PO SCH (22:44)
[2018-08-16] MEDS: PHENYTOIN NA EXTENDED 100 MG CAPSULE (FP) PO SCH (06:03)
[2018-08-16] MEDS: chlordiazePOXIDE HCL 25 MG CAPSULE PO SCH ×2 (06:03→09:01)
[2018-08-16 06:24] VITALS: BP 102/54; PULSE 69; TEMP 97.6
[2018-08-16] MEDS: PRENATAL VITAMINS W/ FOLIC ACID TABLET (FP) PO SCH (08:59)
[2018-08-16] MEDS: levETIRAcetam 250 MG TABLET (FP) PO SCH (09:00)
[2018-08-16] MEDS ORDERED: METHADONE HCL 5 MG TABLET (FOR DETOX USE ONLY) PO SCH (10:00)
--- NOTE | 2018-08-16 12:25 | PN ---
[facility] Progress Note Note: PRIOR TO SALES WAREHOUSE DRIVER BEING ABLE TO ASSES PATIENT PART OF DAILY AM ROUNDS ASSESSMENT, PATIENT BECAME AGITATED AND ELECTED TO LEAVE DETOX UNIT AGAINST MEDICAL ADVICE. SEE FOLLOWING [facility] DETOX DISCHARGE SUMMARY. Saul HAUSER NP
--- NOTE | 2018-08-16 12:39 | DS ---
[facility] Detox Discharge Summary Admission Date: 08/14/18 Discharge Date: 08/16/18 - History Present History: Alcohol Dependence, Cocaine Dependence, Opioid Dependence Additional Comments: PATIENT DOES NOT WISH TO REMAIN TO COMPLETE DETOX REGIMEN. SUPERVISOR TAN ROOM UNABLE TO SPEAK WITH OR MEDICALLY ASSESS PATIENT PRIOR TO LEAVING DETOX UNIT DUE TO FACT THAT PATIENT WAS QUITE AGITATED PRIOR TO LEAVING DETOX UNIT. ACCORDING TO PHARMACIST (LULI) AT PATIENT'S PHARMACY ([facility], [place], [place]), PATIENT HAS PRESCRIPTIONS FOR DILANTIN, DEPAKOTE, AND FOR VENTOLIN INHALER READY TO BE PICKED UP AT PHARMACY WHEN PATIENT ABLE TO GO PICK IT UP. Pertinent Past History: Nicotine Dependence, History of Anemia, History Of Asthma, History of Depression , History of Zgaf-Tlwifuiow-Hnugrd-Disorder, History of Hemangioma, History of Schizophrenia, History Of Weight Loss, History of Seizure Disorder - Physical Exam Results Vital Signs: Vital Signs Temperature 97.6 F 08/16/18 06:23 Pulse Rate 69 08/16/18 06:23 Respiratory Rate 18 08/16/18 06:23 Blood Pressure 102/54 L 08/16/18 06:23 O2 Sat by Pulse Oximetry (%) Pertinent Admission Physical Exam Findings: WITHDRAWAL SYMPTOMS. Laboratory Tests 08/15/18 08/15/18 08/15/18 06:00 08:38 08:38 WBC 5.7 RBC 4.62 Hgb 13.0 Hct 39.8 MCV 86.0 MCH 28.1 MCHC 32.6 RDW 17.7 H Plt Count 326 MPV 8.2 Sodium 138 Potassium 4.1 Chloride 108 H Carbon Dioxide 20 L Anion Gap 10 BUN 10 Creatinine 0.9 Creat Clearance w eGFR > 60 Random Glucose 107 H Calcium 9.1 Total Bilirubin 0.3 AST 16 ALT 25 Alkaline Phosphatase 188 H Total Protein 7.3 Albumin 3.5 RPR Titer Nonreactive LABS NOTED. - Treatment Hospital Course: Detoxed Safely - Medication Discharge Medications: Ambulatory Orders Amitriptyline HCl [Elavil -] 25 mg PO HS 01/18/18 Sertraline HCl [Zoloft] 100 mg PO DAILY 01/18/18 Ziprasidone [Geodon -] 60 mg PO BID 01/18/18 Zolpidem Tartrate [Ambien] 10 mg PO HS 01/18/18 Albuterol Sulfate Inhaler - [Ventolin HFA Inhaler -] 2 inh IH Q4H PRN #1 inhaler 07/02/18 Phenytoin Na Extended [Dilantin -] 100 mg PO TID #90 capsule 07/02/18 levETIRAcetam [Keppra -] 750 mg PO BID #60 tablet 07/02/18 - Diagnosis (1) Alcohol dependence with withdrawal Status: Acute Qualifiers: Complication of substance-induced condition: uncomplicated Qualified Code(s ): F10.230 - Alcohol dependence with withdrawal, uncomplicated (2) History of hemangioma Status: Acute (3) Opioid dependence with withdrawal Status: Acute (4) Substance induced mood disorder Status: Acute (5) Substance-induced sleep disorder Status: Acute (6) Opioid dependence with withdrawal Status: Acute (7) Weight loss Status: Acute (8) Anemia Status: Chronic Qualifiers: Anemia type: unspecified type Qualified Code(s): D64.9 - Anemia, unspecified (9) Asthma Status: Chronic (10) Nicotine dependence Status: Chronic Qualifiers: Nicotine product type: cigarettes Substance use status: in withdrawal Qualified Code(s): F17.213 - Nicotine dependence, cigarettes, with withdrawal (11) Seizure disorder Status: Chronic (12) Cocaine dependence Status: Chronic (13) PTSD (post-traumatic stress disorder) Status: Chronic - AMA Did Patient Leave Against Medical Advice: Yes (PATIENT DID NOT WISH TO REMAIN TO COMPLETE DETOX REGIMEN.)
[2018-08-16] MEDS ORDERED: chlordiazePOXIDE 5 MG CAPSULE PO SCH (17:00)
[2018-08-17] MEDS ORDERED: chlordiazePOXIDE HCL 10 MG CAPSULE PO SCH (17:00)
[2018-08-18] MEDS ORDERED: METHADONE HCL 10 MG TABLET (FOR DETOX USE ONLY) PO SCH (10:00)
[2018-08-19] MEDS ORDERED: METHADONE HCL 5 MG TABLET (FOR DETOX USE ONLY) PO SCH (06:00)
== END 2018-08-16 08:44 | disposition left against medical advice (07) | DRG 770 ==
LOC: YASAS 09:00 → Y3N 10:31
PROVIDERS: ADMIT Surgery; ATTEND Surgery
PROC: HZ2ZZZZ Detoxification Services for Substance Abuse Treatment (ICD-10-PCS; principal; 2018-08-14)
DX: F11.23 Opioid dependence with withdrawal (principal); F10.230 Alcohol dependence with withdrawal, uncomplicated; F14.20 Cocaine dependence, uncomplicated; F17.210 Nicotine dependence, cigarettes, uncomplicated; F19.24 Other psychoactive substance dependence with psychoactive substance-induced mood disorder; F19.282 Other psychoactive substance dependence with psychoactive substance-induced sleep disorder; F43.10 Post-traumatic stress disorder, unspecified; D64.9 Anemia, unspecified; G40.909 Epilepsy, unspecified, not intractable, without status epilepticus; J45.909 Unspecified asthma, uncomplicated; R63.4 Abnormal weight loss; Z68.28 Body mass index [BMI] 28.0-28.9, adult; Z86.2 Personal history of diseases of the blood and blood-forming organs and certain disorders involving the immune mechanism
CPT/HCPCS: 36415; 80053; 85027; 86593

== ENCOUNTER 2020-05-11 11:10 | Inpatient (IN) | payer OTHER ==
[2020-05-11 12:41] VITALS: BMI 57.6
[2020-05-11] MEDS ORDERED: ACETAMINOPHEN 325 MG TABLET (FP) PO PRN ×2 (12:41)
[2020-05-11] MEDS ORDERED: MAG HYDROX/AL HYDROX/SIMETH 30 ML UNIT-DOSE CUP PO PRN (12:41)
[2020-05-11] MEDS ORDERED: NICOTINE POLACRILEX 2 MG GUM BUC PRN (12:41)
[2020-05-11] MEDS ORDERED: IBUPROFEN 400 MG TABLET (FP) PO PRN (12:41)
[2020-05-11] MEDS ORDERED: MAGNESIUM CITRATE 300 ML BOTTLE PO PRN (12:41)
[2020-05-11] MEDS ORDERED: BISMUTH SUBSALICYLATE 524 MG/30 ML UD PO PRN (12:41)
[2020-05-11] MEDS ORDERED: MENTHOL/PHENOL 1 EACH UD MM PRN (12:41)
[2020-05-11] MEDS ORDERED: METHOCARBAMOL 500 MG TABLET PO PRN (12:41)
[2020-05-11] MEDS ORDERED: ONDANSETRON *ODT* 4 MG TABLET SL PRN (12:41)
[2020-05-11] MEDS ORDERED: MAGNESIUM HYDROX 2400MG/30ML ORAL SUSPENSION 30 ML CUP PO PRN (12:41)
[2020-05-11] MEDS ORDERED: cloNIDine HCL 0.1 MG TABLET PO PRN (12:43)
[2020-05-11] MEDS ORDERED: METHADONE HCL 10 MG TABLET (FOR DETOX USE ONLY) PO ONE (13:00)
[2020-05-11] MEDS: PRENATAL VITAMINS W/ FOLIC ACID TABLET (FP) PO SCH (14:11)
[2020-05-11] MEDS: hydrOXYzine PAMOATE 25 MG CAPSULE (FP) PO SCH ×3 (14:12→22:18)
[2020-05-11] MEDS ORDERED: ALBUTEROL SO4 HFA INHALER IH PRN (15:42)
[2020-05-11 17:24] LABS: POTASSIUM 3.6 mmol/L (3.5-5.1)
[2020-05-11 17:26] LABS: HEMATOCRIT 37.7 % (32.4-45.2); HEMOGLOBIN 12.6 GM/dL (10.7-15.3); MCH 31.1 pg (25.7-33.7); MCHC 33.6 g/dl (32.0-36.0); MEAN CELL VOLUME 92.6 fl (80-96); MEAN PLT VOLUME 7.8 fl (7.5-11.1); PLATELET COUNT 310 K/MM3 (134-434); RBC 4.07 M/mm3 (3.60-5.2); RDW 13.6 % (11.6-15.6); WHITE BLOOD COUNT 7.1 K/mm3 (4.0-10.0)
[2020-05-11 17:27] LABS: ALBUMIN 3.4 g/dl (3.4-5.0); BLOOD UREA NITROGEN 14.8 mg/dL (7-18); CALCIUM 8.4 mg/dL (8.5-10.1)
[2020-05-11 17:32] LABS: BILIRUBIN,TOTAL 0.2 mg/dL (0.2-1)
[2020-05-11 17:33] LABS: CREATININE 0.9 mg/dL (0.55-1.3)
[2020-05-11] MEDS: levETIRAcetam 500 MG TABLET (FP) PO SCH (22:18)
[2020-05-11] MEDS: MELATONIN 5 MG TABLETS PO SCH (22:18)
[2020-05-11] MEDS: THIAMINE HCL 100 MG TABLET (FP) PO SCH (22:18)
[2020-05-12] MEDS: hydrOXYzine PAMOATE 25 MG CAPSULE (FP) PO SCH ×5 (07:06→22:20)
[2020-05-12] MEDS ORDERED: METHADONE HCL 10 MG TABLET (FOR DETOX USE ONLY) ONE (08:42)
[2020-05-12] MEDS ORDERED: METHADONE HCL 5 MG TABLET (FOR DETOX USE ONLY) ONE (08:42)
[2020-05-12] MEDS ORDERED: METHADONE (DETOX) 20 MG, METHADONE (DETOX) 5 MG PO ONE (10:00)
[2020-05-12] MEDS: levETIRAcetam 500 MG TABLET (FP) PO SCH ×2 (10:02→22:21)
[2020-05-12] MEDS: PRENATAL VITAMINS W/ FOLIC ACID TABLET (FP) PO SCH (10:02)
[2020-05-12] MEDS: NICOTINE 21 MG/24 HOURS TOPICAL PATCH TD SCH (10:02)
[2020-05-12] MEDS: THIAMINE HCL 100 MG TABLET (FP) PO SCH (22:21)
[2020-05-12] MEDS: MELATONIN 5 MG TABLETS PO SCH (22:21)
[2020-05-13] MEDS: hydrOXYzine PAMOATE 25 MG CAPSULE (FP) PO SCH ×5 (06:43→22:27)
[2020-05-13] MEDS: NICOTINE 21 MG/24 HOURS TOPICAL PATCH TD SCH (09:42)
[2020-05-13] MEDS: levETIRAcetam 500 MG TABLET (FP) PO SCH ×2 (09:42→22:27)
[2020-05-13] MEDS ORDERED: METHADONE HCL 10 MG TABLET (FOR DETOX USE ONLY) PO ONE (10:00)
[2020-05-13] MEDS: PRENATAL VITAMINS W/ FOLIC ACID TABLET (FP) PO SCH (10:29)
[2020-05-13] MEDS: THIAMINE HCL 100 MG TABLET (FP) PO SCH (22:27)
[2020-05-13] MEDS: MELATONIN 5 MG TABLETS PO SCH (22:27)
[2020-05-14] MEDS: hydrOXYzine PAMOATE 25 MG CAPSULE (FP) PO SCH ×2 (05:48→10:24)
[2020-05-14] MEDS ORDERED: METHADONE HCL 5 MG TABLET (FOR DETOX USE ONLY) ONE (08:59)
[2020-05-14] MEDS ORDERED: METHADONE HCL 10 MG TABLET (FOR DETOX USE ONLY) ONE (08:59)
[2020-05-14] MEDS ORDERED: METHADONE (DETOX) 10 MG, METHADONE (DETOX) 5 MG PO ONE (10:00)
[2020-05-14] MEDS: NICOTINE 21 MG/24 HOURS TOPICAL PATCH TD SCH (10:20)
[2020-05-14] MEDS: levETIRAcetam 500 MG TABLET (FP) PO SCH (10:21)
[2020-05-14] MEDS: PRENATAL VITAMINS W/ FOLIC ACID TABLET (FP) PO SCH (10:23)
[2020-05-14 13:17] VITALS: BP 132/82; PULSE 87; TEMP 97.8
[2020-05-15] MEDS ORDERED: METHADONE HCL 10 MG TABLET (FOR DETOX USE ONLY) PO ONE (10:00)
[2020-05-16] MEDS ORDERED: METHADONE HCL 5 MG TABLET (FOR DETOX USE ONLY) PO ONE (06:00)
== END 2020-05-14 13:05 | disposition home or self-care (01) | DRG 773 ==
LOC: YASAS 11:10 → Y6N 12:56
PROVIDERS: ADMIT Allergy & Immunology; ATTEND Allergy & Immunology
PROC: HZ2ZZZZ Detoxification Services for Substance Abuse Treatment (ICD-10-PCS; principal; 2020-05-11)
DX: F11.23 Opioid dependence with withdrawal (principal); F14.20 Cocaine dependence, uncomplicated; F12.20 Cannabis dependence, uncomplicated; F17.210 Nicotine dependence, cigarettes, uncomplicated; F19.282 Other psychoactive substance dependence with psychoactive substance-induced sleep disorder; F19.24 Other psychoactive substance dependence with psychoactive substance-induced mood disorder; F25.9 Schizoaffective disorder, unspecified; F43.10 Post-traumatic stress disorder, unspecified; G40.909 Epilepsy, unspecified, not intractable, without status epilepticus; M54.5 Low back pain; G89.29 Other chronic pain; M25.552 Pain in left hip; Q05.8 Sacral spina bifida without hydrocephalus; Z87.828 Personal history of other (healed) physical injury and trauma; Z88.0 Allergy status to penicillin; Z91.013 Allergy to seafood; Z91.018 Allergy to other foods
CPT/HCPCS: 36415; 80053; 81025; 85027; 86780; 93005; 93010; C9803; U0003

== ENCOUNTER 2021-02-11 09:40 | Inpatient (IN) | payer OTHER ==
[2021-02-11] MEDS ORDERED: NICOTINE 10 MG CARTRIDGE (INHALER) IH PRN (11:00)
[2021-02-11] MEDS ORDERED: METHOCARBAMOL 500 MG TABLET PO PRN (11:00)
[2021-02-11] MEDS ORDERED: methaDONE HCL 10 MG TABLET (FOR DETOX USE ONLY) PO ONE (11:00)
[2021-02-11] MEDS ORDERED: BISMUTH SUBSALICYLATE 262 MG/15 ML BTL PO PRN (11:00)
[2021-02-11] MEDS ORDERED: ACETAMINOPHEN 325 MG TABLET (FP) PO PRN ×2 (11:00)
[2021-02-11] MEDS ORDERED: MAGNESIUM HYDROX 2400MG/30ML ORAL SUSPENSION 30 ML CUP PO PRN (11:00)
[2021-02-11] MEDS ORDERED: IBUPROFEN 400 MG TABLET (FP) PO PRN (11:00)
[2021-02-11] MEDS ORDERED: MENTHOL/PHENOL 1 EACH UD MM PRN (11:00)
[2021-02-11] MEDS ORDERED: ONDANSETRON *ODT* 4 MG TABLET SL PRN (11:00)
[2021-02-11] MEDS ORDERED: cloNIDine HCL 0.1 MG TABLET PO PRN (11:00)
[2021-02-11] MEDS ORDERED: MAGNESIUM CITRATE 300 ML BOTTLE PO PRN (11:00)
[2021-02-11] MEDS ORDERED: MAG HYDROX/AL HYDROX/SIMETH 30 ML UNIT-DOSE CUP PO PRN (11:00)
[2021-02-11 11:08] VITALS: BMI 26.0
[2021-02-11] MEDS ORDERED: COVID-19 VAC,AD26(JANSSEN)/PF 0.5 ML IM ONE (11:08)
[2021-02-11] MEDS: NICOTINE 21 MG/24 HOURS TOPICAL PATCH TD SCH (12:43)
[2021-02-11] MEDS: hydrOXYzine PAMOATE 25 MG CAPSULE (FP) PO SCH ×3 (13:03→22:23)
[2021-02-11] MEDS: THIAMINE HCL 100 MG TABLET (FP) PO SCH (22:23)
[2021-02-11] MEDS: MELATONIN 5 MG TABLETS PO SCH (22:23)
[2021-02-12] MEDS: hydrOXYzine PAMOATE 25 MG CAPSULE (FP) PO SCH ×5 (06:17→23:00)
[2021-02-12] MEDS ORDERED: methaDONE HCL 10 MG TABLET (FOR DETOX USE ONLY) ONE (08:27)
[2021-02-12] MEDS: PRENATAL VITAMINS W/ FOLIC ACID TABLET (FP) PO SCH (11:05)
[2021-02-12] MEDS: NICOTINE 21 MG/24 HOURS TOPICAL PATCH TD SCH (11:06)
[2021-02-12] MEDS: THIAMINE HCL 100 MG TABLET (FP) PO SCH (23:00)
[2021-02-12] MEDS: MELATONIN 5 MG TABLETS PO SCH (23:00)
[2021-02-12] MEDS: clonazePAM 0.5 MG ODT TABLETS SL PRN (23:04)
[2021-02-13] MEDS: hydrOXYzine PAMOATE 25 MG CAPSULE (FP) PO SCH ×5 (06:38→22:37)
[2021-02-13] MEDS ORDERED: methaDONE HCL 10 MG TABLET (FOR DETOX USE ONLY) PO ONE (10:00)
[2021-02-13] MEDS: NICOTINE 21 MG/24 HOURS TOPICAL PATCH TD SCH (10:54)
[2021-02-13] MEDS: PRENATAL VITAMINS W/ FOLIC ACID TABLET (FP) PO SCH (10:54)
[2021-02-13] MEDS: clonazePAM 0.5 MG ODT TABLETS SL PRN (12:27)
[2021-02-13] MEDS: THIAMINE HCL 100 MG TABLET (FP) PO SCH (22:37)
[2021-02-13] MEDS: MELATONIN 5 MG TABLETS PO SCH (22:37)
[2021-02-14] MEDS: hydrOXYzine PAMOATE 25 MG CAPSULE (FP) PO SCH ×2 (07:08→10:10)
[2021-02-14] MEDS ORDERED: methaDONE HCL 10 MG TABLET (FOR DETOX USE ONLY) ONE (08:28)
[2021-02-14 09:29] VITALS: BP 96/56; PULSE 74; TEMP 96.9
[2021-02-14] MEDS: PRENATAL VITAMINS W/ FOLIC ACID TABLET (FP) PO SCH (09:54)
[2021-02-14] MEDS: NICOTINE 21 MG/24 HOURS TOPICAL PATCH TD SCH (09:54)
[2021-02-15] MEDS ORDERED: methaDONE HCL 10 MG TABLET (FOR DETOX USE ONLY) PO ONE (10:00)
== END 2021-02-14 11:26 | disposition left against medical advice (07) | DRG 770 ==
LOC: YASAS 09:40 → Y3N 11:29
PROVIDERS: ADMIT Allergy & Immunology; ATTEND Allergy & Immunology
PROC: HZ2ZZZZ Detoxification Services for Substance Abuse Treatment (ICD-10-PCS; principal; 2021-02-11)
DX: F11.23 Opioid dependence with withdrawal (principal); F14.20 Cocaine dependence, uncomplicated; F17.210 Nicotine dependence, cigarettes, uncomplicated; F43.10 Post-traumatic stress disorder, unspecified; G40.909 Epilepsy, unspecified, not intractable, without status epilepticus; J45.909 Unspecified asthma, uncomplicated; H02.402 Unspecified ptosis of left eyelid; Z87.828 Personal history of other (healed) physical injury and trauma; Z88.0 Allergy status to penicillin; Z91.018 Allergy to other foods; Z91.013 Allergy to seafood
CPT/HCPCS: 36415; 80177; 81025; 86780; 93005; 93010; C9803; Q0162; U0003; U0005

== ENCOUNTER 2021-10-10 15:18 | Inpatient (IN) | payer OTHER ==
[2021-10-10 17:48] VITALS: BMI 25.8
[2021-10-10] MEDS ORDERED: NICOTINE 10 MG CARTRIDGE (INHALER) IH PRN (20:01)
[2021-10-10] MEDS ORDERED: ACETAMINOPHEN 325 MG TABLET (FP) PO PRN ×2 (20:01)
[2021-10-10] MEDS ORDERED: LOPERAMIDE HCL 2 MG CAPSULE PO PRN (20:01)
[2021-10-10] MEDS ORDERED: IBUPROFEN 400 MG TABLET (FP) PO PRN (20:01)
[2021-10-10] MEDS ORDERED: DICYCLOMINE HCL 10 MG CAPSULE PO PRN (20:01)
[2021-10-10] MEDS ORDERED: BISMUTH SUBSALICYLATE 524 MG/30 ML PO PRN (20:01)
[2021-10-10] MEDS ORDERED: MAGNESIUM CITRATE 300 ML BOTTLE PO PRN (20:01)
[2021-10-10] MEDS ORDERED: ONDANSETRON *ODT* 4 MG TABLET SL PRN (20:01)
[2021-10-10] MEDS ORDERED: MAGNESIUM HYDROX 2400MG/30ML ORAL SUSPENSION 30 ML CUP PO PRN (20:01)
[2021-10-10] MEDS ORDERED: MAG HYDROX/AL HYDROX/SIMETH 30 ML UNIT-DOSE CUP PO PRN (20:01)
[2021-10-10] MEDS ORDERED: BENZOCAINE/MENTHOL (CHLORASEPTIC ) LOZENGE MM PRN (20:01)
[2021-10-10] MEDS ORDERED: NICOTINE POLACRILEX 2 MG GUM BUC PRN (20:03)
[2021-10-10] MEDS ORDERED: hydrOXYzine PAMOATE 25 MG CAPSULE (FP) PO SCH (22:00)
[2021-10-11] MEDS ORDERED: cloNIDine HCL 0.1 MG TABLET PO PRN (00:01)
[2021-10-11] MEDS: THIAMINE HCL 100 MG TABLET (FP) PO SCH ×2 (00:46→22:37)
[2021-10-11] MEDS: MELATONIN 5 MG TABLETS PO SCH ×2 (00:46→22:37)
[2021-10-11] MEDS ORDERED: methaDONE HCL 10 MG TABLET (FOR DETOX USE ONLY) PO ONE (06:00)
[2021-10-11 11:50] LABS: HEMATOCRIT 40.8 % (32.4-45.2); HEMOGLOBIN 13.6 GM/dL (10.7-15.3); MCH 30.1 pg (25.7-33.7); MCHC 33.3 g/dl (32.0-36.0); MEAN CELL VOLUME 90.4 fl (80-96); MEAN PLT VOLUME 8.1 fl (7.5-11.1); PLATELET COUNT 336 10^3/uL (134-434); RBC 4.51 M/mm3 (3.60-5.2); RDW 13.3 % (11.6-15.6); WHITE BLOOD COUNT 4.3 K/mm3 (4.0-10.0)
[2021-10-11 12:04] LABS: BLOOD UREA NITROGEN 18.4 mg/dL (7-18)
[2021-10-11 12:07] LABS: CREATININE 0.8 mg/dL (0.55-1.3)
[2021-10-11 12:08] LABS: BILIRUBIN,TOTAL 0.5 mg/dL (0.2-1); TOT PROT 6.6 g/dl (6.4-8.2)
[2021-10-11] MEDS: PRENATAL VITAMINS W/ FOLIC ACID TABLET (FP) PO SCH (13:16)
[2021-10-11] MEDS: NICOTINE 21 MG/24 HOURS TOPICAL PATCH TD SCH (13:16)
[2021-10-11] MEDS ORDERED: PHENYTOIN 50 MG TAB.CHEW PO SCH (15:00)
[2021-10-11] MEDS: levETIRAcetam 250 MG TABLET PO SCH ×2 (15:52→22:37)
[2021-10-11] MEDS: PHENYTOIN NA EXTENDED 100 MG CAPSULE (FP) PO SCH ×2 (15:52→22:37)
[2021-10-12] MEDS: levETIRAcetam 250 MG TABLET PO SCH ×3 (06:36→22:27)
[2021-10-12] MEDS: PHENYTOIN NA EXTENDED 100 MG CAPSULE (FP) PO SCH ×3 (06:36→22:27)
[2021-10-12] MEDS ORDERED: methaDONE HCL 10 MG TABLET (FOR DETOX USE ONLY) ONE (09:36)
[2021-10-12] MEDS: PRENATAL VITAMINS W/ FOLIC ACID TABLET (FP) PO SCH (10:36)
[2021-10-12] MEDS: METHOCARBAMOL 500 MG TABLET PO PRN (10:36)
[2021-10-12] MEDS: NICOTINE 21 MG/24 HOURS TOPICAL PATCH TD SCH (10:39)
[2021-10-12 14:08] LABS: SARS-CoV-2 NAA Not Detected (Not Detected)
[2021-10-12] MEDS: THIAMINE HCL 100 MG TABLET (FP) PO SCH (22:27)
[2021-10-12] MEDS: MELATONIN 5 MG TABLETS PO SCH (22:27)
[2021-10-13] MEDS: levETIRAcetam 250 MG TABLET PO SCH ×3 (05:30→22:31)
[2021-10-13] MEDS: PHENYTOIN NA EXTENDED 100 MG CAPSULE (FP) PO SCH ×3 (05:31→22:31)
[2021-10-13] MEDS ORDERED: methaDONE HCL 10 MG TABLET (FOR DETOX USE ONLY) PO ONE (10:00)
[2021-10-13] MEDS: METHOCARBAMOL 500 MG TABLET PO PRN ×2 (10:25→22:32)
[2021-10-13] MEDS: NICOTINE 21 MG/24 HOURS TOPICAL PATCH TD SCH (10:25)
[2021-10-13] MEDS: PRENATAL VITAMINS W/ FOLIC ACID TABLET (FP) PO SCH (10:26)
[2021-10-13] MEDS ORDERED: PHENYTOIN NA EXTENDED 100 MG CAPSULE (FP) PO ONE (16:38)
[2021-10-13] MEDS: THIAMINE HCL 100 MG TABLET (FP) PO SCH (22:31)
[2021-10-13] MEDS: MELATONIN 5 MG TABLETS PO SCH (22:31)
[2021-10-14] MEDS: levETIRAcetam 250 MG TABLET PO SCH ×3 (06:02→22:28)
[2021-10-14] MEDS: PHENYTOIN NA EXTENDED 100 MG CAPSULE (FP) PO SCH ×3 (06:02→22:27)
[2021-10-14] MEDS ORDERED: methaDONE HCL 10 MG TABLET (FOR DETOX USE ONLY) ONE (09:10)
[2021-10-14] MEDS: METHOCARBAMOL 500 MG TABLET PO PRN ×2 (10:13→18:31)
[2021-10-14] MEDS: PRENATAL VITAMINS W/ FOLIC ACID TABLET (FP) PO SCH (10:13)
[2021-10-14] MEDS: NICOTINE 21 MG/24 HOURS TOPICAL PATCH TD SCH (10:15)
[2021-10-14] MEDS ORDERED: hydrOXYzine PAMOATE 25 MG CAPSULE (FP) PO PRN (10:16)
[2021-10-14] MEDS ORDERED: ALBUTEROL SO4 HFA INHALER IH PRN (15:41)
[2021-10-14] MEDS: hydrOXYzine PAMOATE 50 MG CAPSULE (FP) PO PRN (22:27)
[2021-10-14] MEDS: THIAMINE HCL 100 MG TABLET (FP) PO SCH (22:27)
[2021-10-14] MEDS: SUVOREXANT 10 MG TABLET PO PRN (22:30)
[2021-10-15] MEDS: METHOCARBAMOL 500 MG TABLET PO PRN ×3 (03:08→17:59)
[2021-10-15] MEDS: hydrOXYzine PAMOATE 50 MG CAPSULE (FP) PO PRN ×5 (03:08→22:33)
[2021-10-15] MEDS: levETIRAcetam 250 MG TABLET PO SCH ×3 (05:26→22:32)
[2021-10-15] MEDS: PHENYTOIN NA EXTENDED 100 MG CAPSULE (FP) PO SCH ×3 (05:26→22:32)
[2021-10-15] MEDS ORDERED: methaDONE HCL 10 MG TABLET (FOR DETOX USE ONLY) PO ONE (10:00)
[2021-10-15] MEDS: PRENATAL VITAMINS W/ FOLIC ACID TABLET (FP) PO SCH (10:58)
[2021-10-15] MEDS: NICOTINE 21 MG/24 HOURS TOPICAL PATCH TD SCH (10:59)
[2021-10-15] MEDS: THIAMINE HCL 100 MG TABLET (FP) PO SCH (22:32)
[2021-10-15] MEDS: SUVOREXANT 10 MG TABLET PO PRN (22:40)
[2021-10-16] MEDS: levETIRAcetam 250 MG TABLET PO SCH (06:33)
[2021-10-16] MEDS: PHENYTOIN NA EXTENDED 100 MG CAPSULE (FP) PO SCH (06:33)
[2021-10-16 09:21] VITALS: BP 111/64; PULSE 78; TEMP 97.8
== END 2021-10-16 09:33 | disposition home or self-care (01) | DRG 773 ==
LOC: YASAS 15:18 → Y6N 22:50
PROVIDERS: ADMIT Allergy & Immunology; ATTEND Allergy & Immunology
PROC: HZ2ZZZZ Detoxification Services for Substance Abuse Treatment (ICD-10-PCS; principal; 2021-10-10)
DX: F11.23 Opioid dependence with withdrawal (principal); F12.20 Cannabis dependence, uncomplicated; F17.210 Nicotine dependence, cigarettes, uncomplicated; F19.280 Other psychoactive substance dependence with psychoactive substance-induced anxiety disorder; F19.282 Other psychoactive substance dependence with psychoactive substance-induced sleep disorder; F25.9 Schizoaffective disorder, unspecified; F41.9 Anxiety disorder, unspecified; F32.A Depression, unspecified; F43.10 Post-traumatic stress disorder, unspecified; D50.9 Iron deficiency anemia, unspecified; G40.909 Epilepsy, unspecified, not intractable, without status epilepticus; K21.9 Gastro-esophageal reflux disease without esophagitis; M54.50 Low back pain, unspecified; G89.29 Other chronic pain; Z62.810 Personal history of physical and sexual abuse in childhood; Z91.410 Personal history of adult physical and sexual abuse; Z88.0 Allergy status to penicillin; Z91.018 Allergy to other foods; Z56.0 Unemployment, unspecified; Z59.00 Homelessness unspecified
CPT/HCPCS: 36415; 80053; 80177; 80185; 82962; 85027; 86780; 93005; 93010; C9803-CS; U0003; U0005

== ENCOUNTER 2021-12-13 15:30 | Inpatient (IN) | payer OTHER ==
[2021-12-13 19:12] VITALS: BMI 23.8
[2021-12-13] MEDS ORDERED: ALBUTEROL SO4 HFA INHALER IH PRN (21:17)
[2021-12-13] MEDS ORDERED: BISMUTH SUBSALICYLATE 524 MG/30 ML PO PRN (21:18)
[2021-12-13] MEDS ORDERED: NICOTINE POLACRILEX 2 MG GUM BUC PRN (21:18)
[2021-12-13] MEDS ORDERED: BENZOCAINE/MENTHOL (CHLORASEPTIC ) LOZENGE MM PRN (21:18)
[2021-12-13] MEDS ORDERED: MAGNESIUM HYDROX 2400MG/30ML ORAL SUSPENSION 30 ML CUP PO PRN (21:18)
[2021-12-13] MEDS ORDERED: MAGNESIUM CITRATE 300 ML BOTTLE PO PRN (21:18)
[2021-12-13] MEDS ORDERED: ACETAMINOPHEN 325 MG TABLET (FP) PO PRN ×2 (21:18)
[2021-12-13] MEDS ORDERED: ONDANSETRON *ODT* 4 MG TABLET SL PRN (21:18)
[2021-12-13] MEDS ORDERED: LOPERAMIDE HCL 2 MG CAPSULE PO PRN (21:18)
[2021-12-13] MEDS ORDERED: P-EPHED 60MG/TRIPROLIDI 2.5MG TABLET PO PRN (21:18)
[2021-12-13] MEDS ORDERED: NICOTINE 10 MG CARTRIDGE (INHALER) IH PRN (21:18)
[2021-12-13] MEDS ORDERED: MAG HYDROX/AL HYDROX/SIMETH 30 ML UNIT-DOSE CUP PO PRN (21:18)
[2021-12-13] MEDS ORDERED: IBUPROFEN 400 MG TABLET (FP) PO PRN (21:18)
[2021-12-13] MEDS ORDERED: IBUPROFEN 600 MG TABLET (FP) PO PRN (21:18)
[2021-12-13] MEDS ORDERED: DICYCLOMINE HCL 10 MG CAPSULE PO PRN (21:18)
[2021-12-13] MEDS ORDERED: hydrOXYzine PAMOATE 25 MG CAPSULE (FP) PO PRN (21:18)
[2021-12-13] MEDS: levETIRAcetam 500 MG TABLET (FP) PO SCH (23:38)
[2021-12-13] MEDS: PHENYTOIN NA EXTENDED 100 MG CAPSULE (FP) PO SCH (23:38)
[2021-12-13] MEDS: THIAMINE HCL 100 MG TABLET (FP) PO SCH (23:39)
[2021-12-14] MEDS: PHENYTOIN NA EXTENDED 100 MG CAPSULE (FP) PO SCH ×4 (06:04→22:36)
[2021-12-14] MEDS: levETIRAcetam 500 MG TABLET (FP) PO SCH ×3 (06:04→22:36)
[2021-12-14] MEDS: PRENATAL VITAMINS W/ FOLIC ACID TABLET (FP) PO SCH (11:05)
[2021-12-14 12:06] LABS: HEMATOCRIT 37.8 % (32.4-45.2); HEMOGLOBIN 12.6 GM/dL (10.7-15.3); MCH 30.4 pg (25.7-33.7); MCHC 33.4 g/dl (32.0-36.0); MEAN PLT VOLUME 8.1 fl (7.5-11.1); PLATELET COUNT 325 10^3/uL (134-434); RBC 4.16 M/mm3 (3.60-5.2); RDW 13.8 % (11.6-15.6); WHITE BLOOD COUNT 4.9 K/mm3 (4.0-10.0)
[2021-12-14 12:16] LABS: ALBUMIN 3.1 g/dl (3.4-5.0); CALCIUM 9.3 mg/dL (8.5-10.1)
[2021-12-14 12:17] LABS: BLOOD UREA NITROGEN 10.7 mg/dL (7-18)
[2021-12-14 12:20] LABS: CREATININE 0.7 mg/dL (0.55-1.3)
[2021-12-14 12:21] LABS: BILIRUBIN,TOTAL 0.3 mg/dL (0.2-1); TOT PROT 6.4 g/dl (6.4-8.2)
[2021-12-14] MEDS ORDERED: cloNIDine HCL 0.1 MG TABLET PO PRN (13:19)
[2021-12-14] MEDS ORDERED: PHENYTOIN NA EXTENDED 100 MG CAPSULE (FP) PO ONE (13:45)
[2021-12-14] MEDS ORDERED: methaDONE HCL 10 MG TABLET (FOR DETOX USE ONLY) PO ONE (13:45)
[2021-12-14] MEDS: METHOCARBAMOL 500 MG TABLET PO PRN (15:13)
[2021-12-14] MEDS: THIAMINE HCL 100 MG TABLET (FP) PO SCH (22:36)
[2021-12-14] MEDS: MELATONIN 5 MG TABLETS PO PRN (22:36)
[2021-12-15] MEDS: PHENYTOIN NA EXTENDED 100 MG CAPSULE (FP) PO SCH ×3 (06:23→22:48)
[2021-12-15] MEDS: levETIRAcetam 500 MG TABLET (FP) PO SCH ×3 (06:24→22:47)
[2021-12-15] MEDS ORDERED: methaDONE HCL 10 MG TABLET (FOR DETOX USE ONLY) ONE (08:47)
[2021-12-15] MEDS: PRENATAL VITAMINS W/ FOLIC ACID TABLET (FP) PO SCH (09:31)
[2021-12-15] MEDS: THIAMINE HCL 100 MG TABLET (FP) PO SCH (22:48)
[2021-12-15] MEDS: MELATONIN 5 MG TABLETS PO PRN (22:48)
[2021-12-16] MEDS: levETIRAcetam 500 MG TABLET (FP) PO SCH ×3 (06:34→22:30)
[2021-12-16] MEDS: PHENYTOIN NA EXTENDED 100 MG CAPSULE (FP) PO SCH ×3 (06:35→22:31)
[2021-12-16] MEDS ORDERED: methaDONE HCL 10 MG TABLET (FOR DETOX USE ONLY) PO ONE (10:00)
[2021-12-16] MEDS: PRENATAL VITAMINS W/ FOLIC ACID TABLET (FP) PO SCH (10:48)
[2021-12-16] MEDS: METHOCARBAMOL 500 MG TABLET PO PRN (10:49)
[2021-12-16] MEDS: THIAMINE HCL 100 MG TABLET (FP) PO SCH (22:31)
[2021-12-16] MEDS: MELATONIN 5 MG TABLETS PO PRN (22:31)
[2021-12-17] MEDS: levETIRAcetam 500 MG TABLET (FP) PO SCH (06:23)
[2021-12-17] MEDS: PHENYTOIN NA EXTENDED 100 MG CAPSULE (FP) PO SCH (06:25)
[2021-12-17] MEDS: METHOCARBAMOL 500 MG TABLET PO PRN ×2 (06:27→12:13)
[2021-12-17 08:41] VITALS: BP 105/55; PULSE 74; TEMP 98.1
[2021-12-17] MEDS ORDERED: methaDONE HCL 10 MG TABLET (FOR DETOX USE ONLY) ONE (09:55)
[2021-12-17] MEDS: PRENATAL VITAMINS W/ FOLIC ACID TABLET (FP) PO SCH (10:23)
[2021-12-18] MEDS ORDERED: methaDONE HCL 10 MG TABLET (FOR DETOX USE ONLY) PO ONE (10:00)
== END 2021-12-17 15:39 | disposition left against medical advice (07) | DRG 770 ==
LOC: YASAS 15:30 → Y3N 21:46 → UNDOADMIN 21:46 → Y3N 12-14 00:33
PROVIDERS: ADMIT Allergy & Immunology; ATTEND Allergy & Immunology
PROC: HZ2ZZZZ Detoxification Services for Substance Abuse Treatment (ICD-10-PCS; principal; 2021-12-13)
DX: F11.23 Opioid dependence with withdrawal (principal); F14.20 Cocaine dependence, uncomplicated; F12.20 Cannabis dependence, uncomplicated; F17.210 Nicotine dependence, cigarettes, uncomplicated; F19.24 Other psychoactive substance dependence with psychoactive substance-induced mood disorder; F41.9 Anxiety disorder, unspecified; F32.A Depression, unspecified; F43.10 Post-traumatic stress disorder, unspecified; G40.909 Epilepsy, unspecified, not intractable, without status epilepticus; J45.909 Unspecified asthma, uncomplicated; Z88.0 Allergy status to penicillin; Z91.013 Allergy to seafood; Z91.018 Allergy to other foods; Z59.02 Unsheltered homelessness; Z56.0 Unemployment, unspecified
CPT/HCPCS: 36415; 80053; 80185; 85027; 86780; C9803-CS; U0003; U0005

== ENCOUNTER 2022-09-13 10:59 | Inpatient (IN) | payer OTHER ==
[2022-09-13 11:50] VITALS: BMI 22.6
[2022-09-13] MEDS ORDERED: guaiFENesin 600 MG TABLET.ER (FP) PO PRN (12:13)
[2022-09-13] MEDS ORDERED: MAGNESIUM HYDROX 2400MG/30ML ORAL SUSPENSION 30 ML CUP PO PRN (12:13)
[2022-09-13] MEDS ORDERED: NALOXONE HCL (KLOXXADO) 8 MG SPRAY NS PRN (12:13)
[2022-09-13] MEDS ORDERED: BISMUTH SUBSALICYLATE 262 MG/15 ML BTL PO PRN (12:13)
[2022-09-13] MEDS ORDERED: BENZONATATE 200 MG CAPSULE PO PRN (12:13)
[2022-09-13] MEDS ORDERED: ONDANSETRON *ODT* 4 MG TABLET SL PRN (12:13)
[2022-09-13] MEDS ORDERED: BENZOCAINE/MENTHOL (CHLORASEPTIC ) LOZENGE MM PRN (12:13)
[2022-09-13] MEDS ORDERED: IBUPROFEN 600 MG TABLET (FP) PO PRN (12:13)
[2022-09-13] MEDS ORDERED: cloNIDine HCL 0.1 MG TABLET PO PRN (12:13)
[2022-09-13] MEDS ORDERED: NALOXONE HCL 0.4 MG/ML VIAL IM PRN (12:13)
[2022-09-13] MEDS ORDERED: DICYCLOMINE HCL 10 MG CAPSULE PO PRN (12:13)
[2022-09-13] MEDS ORDERED: ACETAMINOPHEN 325 MG TABLET (FP) PO PRN (12:13)
[2022-09-13] MEDS ORDERED: IBUPROFEN 400 MG TABLET (FP) PO PRN (12:13)
[2022-09-13] MEDS ORDERED: LOPERAMIDE HCL 2 MG CAPSULE PO PRN (12:13)
[2022-09-13] MEDS ORDERED: NICOTINE 10 MG CARTRIDGE (INHALER) IH PRN (12:13)
[2022-09-13] MEDS ORDERED: POLYETHYLENE GLYCOL (HEALTHYLAX) 3350 17 GM PACKET PO PRN (12:13)
[2022-09-13] MEDS ORDERED: methaDONE HCL 10 MG TABLET (FOR DETOX USE ONLY) PO ONE (12:13)
[2022-09-13] MEDS ORDERED: MAG HYDROX/AL HYDROX/SIMETH 30 ML UNIT-DOSE CUP PO PRN (12:13)
[2022-09-13] MEDS ORDERED: hydrOXYzine PAMOATE 25 MG CAPSULE (FP) PO PRN (12:13)
[2022-09-13] MEDS ORDERED: ALBUTEROL SO4 HFA INHALER IH PRN (12:16)
[2022-09-13] MEDS ORDERED: PRENATAL VITAMINS W/ FOLIC ACID TABLET (FP) PO ONE (12:59)
[2022-09-13] MEDS ORDERED: methaDONE HCL 10 MG TABLET (FOR DETOX USE ONLY) ONE (12:59)
[2022-09-13] MEDS ORDERED: NICOTINE 21 MG/24 HOURS TOPICAL PATCH ONE (13:00)
[2022-09-13] MEDS: PRENATAL VITAMINS W/ FOLIC ACID TABLET (FP) PO SCH (13:05)
[2022-09-13] MEDS: NICOTINE 21 MG/24 HOURS TOPICAL PATCH TD SCH (13:05)
[2022-09-13] MEDS ORDERED: levETIRAcetam 500 MG TABLET (FP) PO ONE ×2 (13:47→13:52)
[2022-09-13] MEDS: levETIRAcetam 250 MG TABLET PO SCH ×2 (13:50→22:19)
[2022-09-13] MEDS: METHOCARBAMOL 500 MG TABLET PO PRN ×2 (13:58→22:20)
[2022-09-13] MEDS ORDERED: PHENYTOIN NA EXTENDED 100 MG CAPSULE (FP) PO SCH (14:00)
[2022-09-13 17:33] LABS: HEMATOCRIT 39.1 % (32.4-45.2); HEMOGLOBIN 13.3 GM/dL (10.7-15.3); MCH 30.3 pg (25.7-33.7); MEAN CELL VOLUME 89.2 fl (80-96); MEAN PLT VOLUME 7.7 fl (7.5-11.1); PLATELET COUNT 306 10^3/uL (134-434); RBC 4.38 M/mm3 (3.60-5.2); RDW 13.1 % (11.6-15.6); WHITE BLOOD COUNT 5.2 K/mm3 (4.0-10.0)
[2022-09-13 18:06] LABS: CALCIUM 9.5 mg/dL (8.5-10.1)
[2022-09-13 18:07] LABS: ALBUMIN 3.5 g/dl (3.4-5.0); BLOOD UREA NITROGEN 14.9 mg/dL (7-18)
[2022-09-13 18:10] LABS: CREATININE 0.7 mg/dL (0.55-1.3)
[2022-09-13 18:12] LABS: BILIRUBIN,TOTAL 0.6 mg/dL (0.2-1); TOT PROT 7.1 g/dl (6.4-8.2)
[2022-09-13] MEDS: THIAMINE HCL 100 MG TABLET (FP) PO SCH (22:19)
[2022-09-13] MEDS: MELATONIN 5 MG TABLETS PO SCH (22:19)
[2022-09-14] MEDS: levETIRAcetam 250 MG TABLET PO SCH ×3 (06:42→22:36)
[2022-09-14] MEDS: METHOCARBAMOL 500 MG TABLET PO PRN ×2 (10:47→22:37)
[2022-09-14] MEDS: PRENATAL VITAMINS W/ FOLIC ACID TABLET (FP) PO SCH (10:51)
[2022-09-14] MEDS: NICOTINE 21 MG/24 HOURS TOPICAL PATCH TD SCH (10:51)
[2022-09-14] MEDS: THIAMINE HCL 100 MG TABLET (FP) PO SCH (22:36)
[2022-09-14] MEDS: MELATONIN 5 MG TABLETS PO SCH (22:37)
[2022-09-15] MEDS: levETIRAcetam 250 MG TABLET PO SCH ×3 (05:52→22:41)
[2022-09-15] MEDS ORDERED: methaDONE HCL 10 MG TABLET (FOR DETOX USE ONLY) PO ONE (10:00)
[2022-09-15] MEDS: PRENATAL VITAMINS W/ FOLIC ACID TABLET (FP) PO SCH (10:34)
[2022-09-15] MEDS: NICOTINE 21 MG/24 HOURS TOPICAL PATCH TD SCH (10:36)
[2022-09-15] MEDS: MELATONIN 5 MG TABLETS PO SCH (22:40)
[2022-09-15] MEDS: THIAMINE HCL 100 MG TABLET (FP) PO SCH (22:41)
[2022-09-15] MEDS: METHOCARBAMOL 500 MG TABLET PO PRN (23:04)
[2022-09-16] MEDS: levETIRAcetam 250 MG TABLET PO SCH ×3 (05:58→21:30)
[2022-09-16] MEDS: PRENATAL VITAMINS W/ FOLIC ACID TABLET (FP) PO SCH (10:34)
[2022-09-16] MEDS: PHENYTOIN NA EXTENDED 100 MG CAPSULE (FP) PO SCH ×3 (10:36→21:30)
[2022-09-16] MEDS: NICOTINE 21 MG/24 HOURS TOPICAL PATCH TD SCH (10:36)
[2022-09-16 16:59] VITALS: RESP 16
[2022-09-16] MEDS: MELATONIN 5 MG TABLETS PO SCH (21:30)
[2022-09-16] MEDS: THIAMINE HCL 100 MG TABLET (FP) PO SCH (21:30)
[2022-09-17] MEDS: PHENYTOIN NA EXTENDED 100 MG CAPSULE (FP) PO SCH ×2 (06:09→13:21)
[2022-09-17] MEDS: levETIRAcetam 250 MG TABLET PO SCH ×2 (06:09→13:21)
[2022-09-17] MEDS: PRENATAL VITAMINS W/ FOLIC ACID TABLET (FP) PO SCH (09:48)
[2022-09-17] MEDS: NICOTINE 21 MG/24 HOURS TOPICAL PATCH TD SCH (09:51)
[2022-09-17] MEDS ORDERED: methaDONE HCL 10 MG TABLET (FOR DETOX USE ONLY) PO ONE (10:00)
[2022-09-17 13:42] VITALS: BP 106/75; PULSE 69; TEMP 98
== END 2022-09-17 14:00 | disposition home or self-care (01) | DRG 773 ==
LOC: YASAS 10:59 → Y6N 12:33
PROVIDERS: ADMIT Allergy & Immunology; ATTEND Surgery
PROC: HZ2ZZZZ Detoxification Services for Substance Abuse Treatment (ICD-10-PCS; principal; 2022-09-13)
DX: F11.23 Opioid dependence with withdrawal (principal); F14.20 Cocaine dependence, uncomplicated; F12.20 Cannabis dependence, uncomplicated; F17.210 Nicotine dependence, cigarettes, uncomplicated; F41.9 Anxiety disorder, unspecified; F32.A Depression, unspecified; F43.10 Post-traumatic stress disorder, unspecified; U07.1 COVID-19; G40.909 Epilepsy, unspecified, not intractable, without status epilepticus; J45.20 Mild intermittent asthma, uncomplicated; Z88.0 Allergy status to penicillin; Z91.013 Allergy to seafood
CPT/HCPCS: 36415; 80053; 80186; 85027; 86780; 87811; C9803-CS; U0003; U0005